=== PATIENT | female | born 1945 | race Caucasian/White ===

== ENCOUNTER 2018-04-19 16:11 | Inpatient (IN) ==
[2018-04-19] MEDS ORDERED: Bisacodyl 10 MG Supp RECTAL PRN (21:49)
[2018-04-19] MEDS ORDERED: Acetaminophen 325 MG Tablet PO PRN (21:49)
[2018-04-19] MEDS ORDERED: Famotidine 20 MG Tablet PO PRN (21:59)
--- NOTE | 2018-04-19 22:03 | P.HPIM ---
History of Present Illness Primary Care Physician: UNKNOWN History of Present Illness: 72 y/o female with a history copd, chronic pain, and anxiety was a transfer from [facility] for evaluation by a cardiothoracic surgeon for evaluation of persistent right-sided hydropneumothorax with large empyema and main need intervention. Patient was admitted on 04/07/18 and found to have pneumonia with a large empyema, thoracentesis was completed on 04/08 and fluid was then sent and cultures grew Streptococcus intermedius, patient was treated with IV antibiotics and is currently on p.o. Levaquin. Patient did have a pigtail catheter in place and continued to drain 100 mL's of fluid every day. Multiple chest x-rays have been completed since thoracentesis and patient continued to have residual right hydropneumothorax despite intervention. Dr. Glaser agreed to take patient on [place] with consult to thoracic surgeons. Upon examination patient denies any chest pain, shortness of breath, fever or chills. Inpatient Certification: I certify that the inpatient services were ordered in accordance with Medicare regulations governing the order. This includes certification that hospital inpatient services are reasonable and necessary and in the case of services not specified as inpatient-only under 42 CFR 419.22(n), that they are appropriately provided as inpatient services in accordance to with the 2-midnight benchmark under 43 CFR 412.3(e) Estimated Total Length of Stay (Days): 2 Plans for Post Hospital Care: Home Review of Systems All other systems reviewed negative except as stated in HPI [facility] - History History Provided By: Patient - Medical History Medical History: Medical History (Last Updated 04/19/18 @ 22:06 by KANCHAN Guardado) Anxiety COPD (chronic obstructive pulmonary disease) Cataract Chronic pain Family history normal GERD (gastroesophageal reflux disease) - Surgical History Surgical History: Surgical History (Last Updated 04/20/18 @ 00:09 by KANCHAN Guardado) History of thoracentesis - Family History Family History: Family History (Last Updated 04/20/18 @ 00:09 by KANCHAN Guardado) Other Family history normal - Tobacco History Second Hand Smoke Exposure: No Tobacco Use In Past 30 Days: No Smoking Status: Current every day smoker Tobacco Type: Cigarettes - Alcohol History How Often Do You Have a Drink Containing Alcohol: Never - Substance Use History Substance History: No History of Abuse Medications and Allergies Active Medications: Active Medications Acetaminophen (Tylenol) 650 mg PO Q4H PRN PRN Reason: Temp > 100.4 Al Hydroxide/Mg Hydroxide (Milk Of Magnesia Liq) 30 ml PO Q12H PRN PRN Reason: Mild Constipation Albuterol (Ventolin Hfa Inh) 2 puff INH Q4-6H PRN PRN Reason: Shortness Of Breath Bisacodyl (Dulcolax Supp) 10 mg RECTAL DAILY PRN PRN Reason: SEVERE CONSITIPATION Clonazepam (Klonopin) 0.5 mg PO BID MARI Diazepam (Valium) 5 mg PO BID MARI Famotidine (Pepcid) 20 mg PO DAILY PRN PRN Reason: Indigestion Lactulose (Lactulose Liq) 30 ml PO DAILY PRN PRN Reason: SEVERE CONSITIPATION Levofloxacin (Levaquin) 750 mg PO DAILY MARI Methocarbamol (Robaxin) 500 mg PO TID [facility] Non-Formulary Medication (Eye Lubricant Combination No.1 [Freshkote]) 1 drp EACH EYE TID [facility] Non-Formulary Medication (Methadone [Methadone]) 5 mg PO Q6H PRN PRN Reason: Acute Pain Non-Formulary Medication (Cholecalciferol (Vitamin D3) [Cholecalciferol ( Vitamin D3)]) 1,000 unit PO DAILY [facility] Ondansetron HCl (Zofran Inj) 4 mg IV.PUSH Q6H PRN PRN Reason: NAUSEA OR VOMITING Oxycodone/Acetaminophen (Percocet 5/325 Mg) 1 tab PO Q4H PRN PRN Reason: Abdominal Pain Pantoprazole Sodium (Protonix) 40 mg PO BID PRN PRN Reason: Indigestion Sennosides (Senokot) 17.2 mg PO Q12H PRN PRN Reason: Moderate Constipation Allergies Allergy/AdvReac Type Severity Reaction Status Date / Time No Known Allergies Allergy Unverified 04/19/18 21:49 Home Medications Medication Instructions Recorded Confirmed Type Senna with Docusate Sodium 2 tab PO AC PRN 04/19/18 04/19/18 History albuterol sulfate [ProAir HFA] 2 puff INHALATION Q4-6H PRN 04/19/18 04/19/18 History cholecalciferol (vitamin D3) 1,000 unit PO DAILY 04/19/18 04/19/18 History clonazepam 0.5 mg PO BID 04/19/18 04/19/18 History diazepam 5 mg PO BID 04/19/18 04/19/18 History estradiol 0.5 mg PO HS 04/19/18 04/19/18 History eye lubricant combination no.1 1 drp OPHTHALMIC (EYE) TID 04/19/18 04/19/18 History [FreshKote] famotidine [Pepcid] 20 mg PO DAILY PRN 04/19/18 04/19/18 History ibuprofen 400 mg PO QID PRN 04/19/18 04/19/18 History levofloxacin [Levaquin] 750 mg PO DAILY 04/19/18 04/19/18 History methadone 5 mg PO Q6H 04/19/18 04/19/18 History methocarbamol [Robaxin] 500 mg PO TID 04/19/18 04/19/18 History norethindrone acetate 2.5 mg PO HS 04/19/18 04/19/18 History oxycodone-acetaminophen 1 - 2 tab PO Q4-6H PRN 04/19/18 04/19/18 History pantoprazole [Protonix] 40 mg PO BID PRN 04/19/18 04/19/18 History Exam Vital signs: Vital Signs 04/19/18 17:33 04/19/18 20:00 Temperature 98.7 F 97.6 F Pulse Rate 81 98 H Respiratory Rate 18 20 Blood Pressure 149/60 H 158/98 H Pulse Oximetry 95 93 L Intake & Output 04/19/18 04/19/18 04/20/18 06:59 18:59 06:59 Weight 38.555 kg Other: Weight On Admission 38.555 kg Narrative: GENERAL: This is a well-nourished, very thin, malnourished looking patient, in no apparent distress. SKIN: Stage 2 coccyx ulcer, blanchable EYES: Pupils equal round and reactive, no scleral edema or drainage CARDIOVASCULAR: Regular rate and rhythm without murmurs, gallops, or rubs. RESPIRATORY: RLL with very little air movement. no wheezes or crackles. GASTROINTESTINAL: Abdomen soft, non-tender, nondistended. Normal active bowel sounds MUSCULOSKELETAL: Extremities without clubbing, cyanosis, or edema. NEURO: Alert & Oriented x4 to person, place, time, situation. Moves all ext x4 Caprini VTE Risk Assessment Caprini VTE Risk Assessment: No/Low Risk (score <= 1) Caprini Risk Assessment Model: Point Value = 1 Point Value = 2 Point Value = 3 Point Value = 5 Age 41-60 Minor surgery BMI > 25 kg/m2 Swollen legs Varicose veins or History of unexplained or recurrent spontaneous Oral contraceptives or hormone replacement Sepsis (< 1 month) Serious lung disease, including pneumonia (< 1 month) Abnormal pulmonary function Acute myocardial infarction Congestive heart failure (< 1 month) History of inflammatory bowel disease Medical patient at bed rest Age 61-74 Arthroscopic surgery Major open surgery (> 45 min) Laparoscopic surgery (> 45 min) Malignancy Confined to bed (> 72 hours) Immobilizing plaster cast Central venous access Age >= 75 History of VTE Family history of VTE Factor V Leiden Prothrombin [id number] Lupus anticoagulant Anticardiolipin antibodies Elevated serum homocysteine Heparin-induced thrombocytopenia Other congenital or acquired thrombophilia Stroke (< 1 month) Elective arthroplasty Hip, pelvis, or leg fracture Acute spinal cord injury (< 1 month) Prophylaxis Regimen: Total Risk Factor Score Risk Level Prophylaxis Regimen 0-1 Low Early ambulation 2 Moderate Order ONE of the following: *Sequential Compression Device (SCD) *Heparin 5000 units SQ BID 3-4 Higher Order ONE of the following medications: *Heparin 5000 units SQ TID *Enoxaparin/Lovenox 40 mg SQ daily (WT < 150 kg, CrCl > 30 mL/min) *Enoxaparin/Lovenox 30 mg SQ daily (WT < 150 kg, CrCl > 10-29 mL/min) *Enoxaparin/Lovenox 30 mg SQ BID (WT < 150 kg, CrCl > 30 mL/min) AND/OR *Sequential Compression Device (SCD) 5 or more Highest Order ONE of the following medications: *Heparin 5000 units SQ TID (Preferred with Epidurals) *Enoxaparin/Lovenox 40 mg SQ daily (WT < 150 kg, CrCl > 30 mL/min) *Enoxaparin/Lovenox 30 mg SQ daily (WT < 150 kg, CrCl > 10-29 mL/min) *Enoxaparin/Lovenox 30 mg SQ BID (WT < 150 kg, CrCl > 30 mL/min) AND *Sequential Compression Device (SCD) Assessment and Plan - Plan 72 y/o female with a history copd, chronic pain, and anxiety was a transfer from [facility] for evaluation by a cardiothoracic surgeon for evaluation of persistent right-sided hydropneumothorax with large empyema and main need intervention. Persistent right-sided hydropneumothorax with large empyema -Consult placed to cardiothoracic surgeon for evaluation -Chest x-ray in a.m. -P.o. after midnight in case surgical intervention is warranted -Continue p.o. Levaquin -Labs in a.m. Coccyx pressure ulcer, stage II -Continue to monitor, apply barrier cream -We will consult wound care if needed -Turn Q2HR Physical deconditioning -PT eval and treat -Add ensure to meals when no longer npo -Consult dietary COPD, chronic, currently not in exacerbation -Resume home inhaler, duo nebs as needed Chronic pain -Resume home medications methadone and Percocet Anxiety, chronic -Resume home medications Valium and Klonopin DVT prophylaxis: SCDs Discussed Condition With: Patient and RN H&P: Quality - VTE Deep Vein Thrombosis/Pulmonary Embolism Present on Admission: Yes
[2018-04-19] MEDS: clonazePAM 0.5 MG Tablet PO SCH (22:26)
[2018-04-19] MEDS: diazePAM 5 MG Tablet PO SCH (22:26)
--- NOTE | 2018-04-20 06:33 | XR ---
EXAM DATE: 04/20/2018 6:14 AM EDT AGE/SEX: 72 years / Female INDICATIONS: Short of breath, evaluate for pneumothorax CLINICAL DATA: This is the patient's initial encounter. Patient reports that signs and symptoms have been present for 2 days and indicates a pain score of 0/10. MEDICAL/SURGICAL HISTORY: Non-responsive. Non-responsive. COMPARISON: No prior exams available for comparison. FINDINGS: A single AP view of the chest demonstrates right basilar density with obscuration of the right hemidi aphragm. There is some volume loss on the right. Left lung clear. Heart normal in size. The cardiome diastinal contours are unremarkable. Questionable right basilar pneumothorax. Osseous structures are intact. CONCLUSION: 1. Right basilar density with some slight volume loss. Contrasted CT chest recommended. 2. Questionable right basilar pneumothorax. Electronically signed by: Omid Smart MD 04/20/2018 6:32 AM EDT
[2018-04-20] MEDS: Methocarbamol 500 MG Tablet PO SCH ×3 (08:18→18:17)
[2018-04-20] MEDS: clonazePAM 0.5 MG Tablet PO SCH ×2 (08:18→20:50)
[2018-04-20] MEDS: diazePAM 5 MG Tablet PO SCH ×2 (08:18→20:50)
[2018-04-20] MEDS: levoFLOXacin 750 MG Tablet PO SCH (08:18)
[2018-04-20] MEDS ORDERED: [UNRECOGNIZED DRUG - OTHER] EACH EYE SCH (09:00)
[2018-04-20] MEDS ORDERED: [UNRECOGNIZED DRUG - OTHER] PO SCH (09:00)
[2018-04-20] MEDS ORDERED: CHOLECALCIFEROL 1000 UNIT PO SCH (09:00)
[2018-04-20] MEDS ORDERED: [UNRECOGNIZED DRUG - OTHER] EACH EYE SCH (09:00)
--- NOTE | 2018-04-20 09:16 | P.PNIM ---
Subjective Interval history: f/u; hydropneumothorax in no acute distress. complaining of some dysuria. no sob or fever. Physical Exam Vital signs: Vital Signs 04/19/18 17:33 04/19/18 20:00 04/20/18 00:00 Temperature 98.7 F 97.6 F 97.6 F Pulse Rate 81 98 H 89 Respiratory Rate 18 20 18 Blood Pressure 149/60 H 158/98 H 146/91 H Pulse Oximetry 95 93 L 91 L 04/20/18 00:28 04/20/18 01:38 04/20/18 03:46 Temperature Pulse Rate 87 110 H 91 H Respiratory Rate 16 Blood Pressure Pulse Oximetry 04/20/18 04:00 04/20/18 08:00 Temperature 97.9 F 98.2 F Pulse Rate 86 83 Respiratory Rate 18 20 Blood Pressure 141/70 H 156/71 H Pulse Oximetry 91 L 93 L Intake & Output 04/19/18 04/20/18 04/20/18 18:59 06:59 18:59 Weight 47.2 kg Other: Weight On Admission 38.555 kg - Constitutional no acute distress - Routine Neck Exam Present: supple - Routine Respiratory Exam Present: diminished air movement (in right lower half.) - Routine Cardiovascular Exam Present: RRR - Routine Abdominal Exam Present: soft - Routine Extremities Exam Comments: no pedal edema. - Routine Neurological Exam Present: oriented X3 Results - Labs CBC & Chem 7: 04/20/18 07:57 04/20/18 07:57 - Imaging Impressions Chest X-Ray 04/20/18 06:00 CONCLUSION: 1. Right basilar density with some slight volume loss. Contrasted CT chest recommended. 2. Questionable right basilar pneumothorax. Assessment and Plan - Plan Persistent right-sided hydropneumothorax with large empyema -Consult placed to cardiothoracic surgeon for evaluation -Continue p.o. Levaquin -Labs today- pending. Coccyx pressure ulcer, stage II -Continue to monitor, apply barrier cream -will consult wound care if needed -Turn Q2HR Physical deconditioning -PT eval and treat -Added ensure to meals when no longer npo -Consulted dietary COPD, chronic, currently not in exacerbation -Resumed home inhaler, duo nebs as needed Chronic pain -Resumed home medications methadone and Percocet Anxiety, chronic -Resume home medications Valium and Klonopin dysuria -check UA and will add Pyridium DVT prophylaxis: SCDs Discharge Planning: awaiting CT surgery evaluation.
[2018-04-20 09:20] LABS: Baso % (Auto) 0.3 % (0.0-2.0); Eos % (Auto) 0.7 % (0.0-4.0); Hematocrit 30.3 % (35.0-46.0); Hemoglobin 9.5 gm/dL (11.6-15.3); Lymph # (Auto) 1.4 th/mm3 (1.0-4.8); Lymph % (Auto) 20.7 % (9.0-44.0); Mean Corpuscular HGB Conc 31.4 % (32.0-36.0); Mean Corpuscular Hemoglobin 27.1 pg (27.0-34.0); Mean Corpuscular Volume 86.5 fL (80.0-100.0); Mono # (Auto) 0.5 th/mm3 (0.0-0.9); Mono % (Auto) 7.3 % (0.0-8.0); Neut # (Auto) 4.8 th/mm3 (1.8-7.7); Platelet Count 574 th/mm3 (150-450); Red Cell Distribution Width 19.8 % (11.6-17.2); White Blood Count 6.8 th/mm3 (4.0-11.0)
[2018-04-20 09:26] LABS: INR 1.1 Ratio; Prothrombin Time 10.7 sec (9.8-11.6)
[2018-04-20 09:51] LABS: Alanine Aminotransferase 13 U/L (10-53); Albumin 2.1 g/dL (3.4-5.0); Alkaline Phosphatase 185 U/L (45-117); Anion Gap 8 meq/L (5-15); Aspartate Aminotransferase 13 U/L (15-37); Blood Urea Nitrogen 7 mg/dL (7-18); Calcium 8.2 mg/dL (8.5-10.1); Carbon Dioxide 33.4 meq/L (21.0-32.0); Chloride 98 meq/L (98-107); Glomerular Filtration Rate Greater Than 89 mL/min (>89); Glucose,Random 82 mg/dL (74-106); Sodium 139 meq/L (136-145); Total Protein 6.1 g/dL (6.4-8.2)
[2018-04-20 10:00] LABS: Potassium 2.9 meq/L (3.5-5.1)
--- NOTE | 2018-04-20 16:44 | P.DIET ---
Nutritional Evaluation Type of nutrition evaluation: initial Nutrition consult regarding: Diet Evaluation (MDC for Malnutrition) Subjective Subjective Comments: Pt visibly cachectic w/ muscle wasting noticed in the temporal region, legs, arms, and clavicle region. She says she lost wt while in the hospital x3 weeks at [place], but now feels hungry and is ready to focus on gaining wt back. Agreeable to Ensure TID. Denied N/V/D/C. Denied trouble chewing/swallowing. Review of pts baseline nutrition at home, it does seem like she eats less than she should. Objective - Diagnosis Medical - Objective % IBW: 83 (CKJ=735#) Body Weight Used for Calculations: IBW (56.8kg) Energy Needs - Lower Range (kCal/kg): 25 Energy Needs - Upper Range (kCal/kg): 30 Lower Limit kCal/kg (kCals): 1,420 Upper Limit kCal/kg (kCals): 1,704 Lower Limit Protein Factor (Grams per Kg): 1.0 Upper Limit Protein Factor (Grams per Kg): 1.2 Lower Protein Needs (Protein): 57 Upper Protein Needs (Protein): 68 Dietitian Reviewed in Medical Record: Current diet, Curent medications, Intake & Output, Labs, Medical history Diet Order: Regular Objective Comments: Meds: Vitamin D3 Labs: K 2.9 (-) BM Feeding - Current PO Supplement Current Supplement: Ensure Enlive Current Frequency of Supplement: Three times a day Current kCals Provided by Supplement: 350 Current Protein Provided by Supplement: 20 Assessment Assessment: Pt admitted from [facility]. She states she lost all of her wt while inpatient at [place]. She states she has no issues now w/ her appetite and desire to eat. Denied N/V/D/C. Denied trouble chewing/swallowing. It seems that she may not have been eating enough when she was home. She is at high nutritional risk 2/2 her recent wt loss and her underweight status and this was discussed w/ pt. Agreeable to Enlive TID. Will continue to monitor PO intake. Dietitian following. Recommendations: 1. Continue current POC. 2. Enlive TID. Dietitian to Monitor: Lab values, Supplement acceptance, Intake & Output, Diet tolerance, Weight change, PO Intake, Medical course
--- NOTE | 2018-04-20 17:14 | CT ---
EXAM DATE: 04/20/2018 5:04 PM EDT AGE/SEX: 72 years / Female INDICATIONS: Chest discomfort. CLINICAL DATA: This is the patient's initial encounter. Patient reports that signs and symptoms have been present for 1 day and indicates a pain score of 4/10. MEDICAL/SURGICAL HISTORY: Chronic obstructive pulmonary disease. . Thoracentesis. RADIATION DOSE: 5.1 CTDI (mGy) COMPARISON: C, CHEST 1V SINGLE AP, 04/20/2018. . TECHNIQUE: Multiple contiguous axial images were obtained through the chest without contrast. Image s were obtained in suspended respiration using multiple row detector helical technique. Using automa vanita exposure control and adjustment of the mA and/or kV according to patient size, radiation dose was kept as low as reasonably achievable to obtain optimal diagnostic quality images. DICOM format imag e data is available electronically for review and comparison. FINDINGS: Lung/pleura: There is a large loculated right-sided hydropneumothorax with indeterminate fluid densi ty. Associated airspace consolidation at the right lung base. Mild to moderate upper lobe predominant centrilobular emphysema. There is occlusion of the right mainstem bronchus with debris and fluid not ed in the bronchus. Mediastinum: Moderate coronary artery calcifications. Heart is otherwise unremarkable. No gross medi astinal adenopathy. Osseous Structures: No abnormal focal lytic or blastic bony lesions. Soft Tissues: Soft tissues are unremarkable. No significant axillary adenopathy. Other: Visulaized upper abdomen demonstrates a 2.6 cm cyst in the superior pole of left kidney.. CONCLUSION: 1. Occlusion of the right mainstem bronchus with debris and fluid noted in the bronchus. Associated large loculated right-sided hydropneumothorax with indeterminate fluid density. Relatively small amou nt of associated airspace consolidation at the right lung base, in the expected range for compressive atelectasis. Suspect findings reflect aspiration with right-sided empyema. Differential consideratio ns include endobronchial mass. 2. Additional ancillary findings, as above. Electronically signed by: Kolton Escoto MD 04/20/2018 5:13 PM EDT
--- NOTE | 2018-04-20 17:15 | MB ---
cc: Dyana Monson MD DATE: 04/20/2018 HISTORY OF PRESENT ILLNESS: A 72-year-old female with significant history of COPD, fibromyalgia, malnutrition transferred from [facility] for cardiothoracic evaluation for persistent right-sided hydropneumothorax with empyema and evaluation for possible right video-assisted thoracoscopy, possible thoracotomy decortication. The patient has had pulmonary issues since January of this year where she fell at home, had some bruising to her right ribs. She had a thoracentesis at [facility] in February and then she was home for about 24 hours, developed fever. She went to [facility] for about 3 weeks. She was home for 2 weeks developed a fever again, went into [facility] again and this time was found to have a right effusion again, pleural fluid collection. The thoracentesis drained 800 mL of milky purulent fluid. On 04/17/2018, the pleural fluid grew Strep intermedius. They were treated her with IV Levaquin. PAST MEDICAL HISTORY: Recurrent pneumonia, recurrent pleural effusion, empyema with Strep intermedius, fibromyalgia, scoliosis, chronic low back pain, right and left rotator cuff tear, spinal stenosis, anxiety. She has lost about 20 pounds in the past 6 months. No ill contacts. No recent travel. PAST SURGICAL HISTORY: Include thoracentesis per the patient x2. ALLERGIES: NO KNOWN ALLERGIES. MEDICATIONS FROM [facility]: Ibuprofen, Levaquin, nebulizers, vitamin D3, clonazepam, estradiol, Pepcid, methadone, Robaxin, norethindrone acetate, Percocet, Protonix. FAMILY HISTORY: Noncontributory. SOCIAL HISTORY: Remote history of tobacco abuse. No alcohol. , lives with her . REVIEW OF SYSTEMS: As above in HPI, other 12 systems unremarkable. PHYSICAL EXAMINATION: VITAL SIGNS: Blood pressure 140/60, heart rate 80-90, afebrile, O2 saturation 91 on room air. The patient is very thin, cachectic. HEENT: Normocephalic, atraumatic. Pupils equal and reactive. Oral mucosa pink, moist. NECK: Supple. No JVD. HEART: Sounds S1, S2. Regular rate and rhythm. No audible rubs or gallops. LUNGS: Very diminished in the bases, right greater than the left. ABDOMEN: Flat, concave. No masses or organomegaly. EXTREMITIES: No cyanosis, clubbing or edema. She does have some mild incontinence to urine. LABORATORY DATA: Shows hemoglobin 9.5, hematocrit of 30, white cell count of 6.8, platelet count of 574. Sodium 139, potassium 2.9, BUN of 7, creatinine 0.23, glucose 82. INR 1.1. RADIOLOGIC DATA: Exams pending. Her recent chest x-ray shows again a moderate to large right pleural effusion with some volume loss. IMPRESSION: This is a patient who has had a thoracentesis x2 for right pleural effusion. Her pleural fluid did grow Streptococcus intermedius. They have been treating her with Levaquin. She was transferred to our facility for persistent effusion and volume loss. PLAN: At this time, the patient will undergo CT chest, pulmonary function testing. She has severe malnutrition with a BMI of 17. Recommend protein supplements. The films will then be evaluated by Dr. Dyana Monson and further plan pending at that time. Dictated by KANCHAN Ramirez MD KELLIE Kumar/alfred , 04:31 PM , 04:40 PM
[2018-04-20] MEDS: Methadone 10 MG Tablet PO PRN (19:53)
[2018-04-20 20:35] LABS: Bacteria,Urine Rare /hpf; Bilirubin,Urine Negative (Negative); Calcium Oxalate Crystals,Urine Moderate /hpf; Clarity,Urine Hazy (Clear); Color,Urine Amber (Yellw/Straw); Glucose,Urine (UA) Negative (Negative); Leukocyte Esterase,Urine Negative (Negative); Mucus,Urine Many /lpf (Occasional); Nitrite,Urine Positive (Negative); Specific Gravity,Urine 1.021 (1.002-1.035); Squamous Epithelial Cell,Urine 7 /hpf (0-5); Urobilinogen,Urine 4 or Greater mg/dL (Less than 2)
[2018-04-20] MEDS: Estradiol 1 MG Tablet PO SCH (20:49)
[2018-04-20] MEDS ORDERED: NORETHINDRONE PO SCH (21:00)
[2018-04-20] MEDS: Nystatin 100,000 UNITS/GM Powder 15 GM Bottle TOPICAL SCH (23:56)
[2018-04-21] MEDS: Methadone 10 MG Tablet PO PRN ×4 (02:23→22:40)
[2018-04-21] MEDS: clonazePAM 0.5 MG Tablet PO SCH ×2 (07:58→20:54)
[2018-04-21] MEDS: Methocarbamol 500 MG Tablet PO SCH ×3 (07:59→18:27)
[2018-04-21] MEDS: Nystatin 100,000 UNITS/GM Powder 15 GM Bottle TOPICAL SCH ×2 (08:02→20:55)
[2018-04-21] MEDS: levoFLOXacin 750 MG Tablet PO SCH (08:02)
[2018-04-21] MEDS: diazePAM 5 MG Tablet PO SCH ×2 (08:02→20:53)
--- NOTE | 2018-04-21 09:18 | P.PNIM ---
Subjective Interval history: f/u; empyema in no acute distress. although complaining of generalized pain and back pain, she looks fairly comfortable. no sob or fever. Physical Exam Vital signs: Vital Signs 04/20/18 12:00 04/20/18 16:00 04/20/18 16:20 Temperature 98.1 F 97.6 F Pulse Rate 112 H 97 H 103 H Respiratory Rate 20 20 20 Blood Pressure 142/67 H 132/63 Pulse Oximetry 91 L 91 L 04/20/18 16:21 04/20/18 20:00 04/21/18 00:00 Temperature 98.3 F 97.7 F Pulse Rate 103 H 83 Respiratory Rate 18 16 Blood Pressure 151/65 H 136/64 Pulse Oximetry 91 L 95 94 L 04/21/18 03:52 04/21/18 04:00 Temperature 97.4 F L Pulse Rate 82 84 Respiratory Rate 18 Blood Pressure 128/68 Pulse Oximetry 97 Intake & Output 04/20/18 04/21/18 04/21/18 18:59 06:59 18:59 Intake Total 240 / 240 Balance 240 / 240 Weight 47.2 kg Intake: Oral 240 / 240 Other: # Voids 2 # Incontinent Bowel Movements 0 - Constitutional no acute distress - Routine Respiratory Exam Present: diminished air movement (right base.) - Routine Cardiovascular Exam Present: RRR - Routine Abdominal Exam Present: soft - Routine Extremities Exam Comments: no pedal edema. - Routine Neurological Exam Present: alert, oriented X3 Results - Labs CBC & Chem 7: 04/20/18 07:57 04/20/18 07:57 Laboratory Results - last 24 hr 04/20/18 04/20/18 04/20/18 07:57 07:57 07:57 WBC 6.8 RBC 3.50 L Hgb 9.5 L Hct 30.3 L MCV 86.5 MCH 27.1 MCHC 31.4 L RDW 19.8 H Plt Count 574 H MPV 7.0 Neut % (Auto) 71.0 H Lymph % (Auto) 20.7 Whitfield % (Auto) 7.3 Eos % (Auto) 0.7 Baso % (Auto) 0.3 Neut # (Auto) 4.8 Lymph # (Auto) 1.4 Whitfield # (Auto) 0.5 Eos # (Auto) 0.0 Baso # (Auto) 0.0 WBC Differential . Differential Comment Auto diff final PT 10.7 INR 1.1 Sodium 139 Potassium 2.9 L* Chloride 98 Carbon Dioxide 33.4 H Anion Gap 8 BUN 7 Creatinine 0.23 L Estimated GFR Greater than 89 Random Glucose 82 Calcium 8.2 L Total Bilirubin 0.3 AST 13 L ALT 13 Alkaline Phosphatase 185 H Total Protein 6.1 L Albumin 2.1 L Urine Color Urine Clarity Urine pH Ur Specific Mcmechen Urine Protein Urine Glucose (UA) Urine Ketones Urine Occult Blood Urine Nitrate Urine Bilirubin Urine Urobilinogen Ur Leukocyte Esterase Urine WBC Ur Squamous Epith Cells Calcium Oxalate Crystal Urine Bacteria Urine Mucus Micro UA Comment Urine Culture Comments 04/20/18 16:00 WBC RBC Hgb Hct MCV MCH MCHC RDW Plt Count MPV Neut % (Auto) Lymph % (Auto) Whitfield % (Auto) Eos % (Auto) Baso % (Auto) Neut # (Auto) Lymph # (Auto) Whitfield # (Auto) Eos # (Auto) Baso # (Auto) WBC Differential Differential Comment PT INR Sodium Potassium Chloride Carbon Dioxide Anion Gap BUN Creatinine Estimated GFR Random Glucose Calcium Total Bilirubin AST ALT Alkaline Phosphatase Total Protein Albumin Urine Color Lydia Urine Clarity Hazy H Urine pH 7.0 Ur Specific Mcm[place]hen 1.021 Urine Protein Negative Urine Glucose (UA) Negative Urine Ketones Negative Urine Occult Blood Negative Urine Nitrate Positive H Urine Bilirubin Negative Urine Urobilinogen 4 or greater Ur Leukocyte Esterase Negative Urine WBC 2 Ur Squamous Epith Cells 7 Calcium Oxalate Crystal Moderate H Urine Bacteria Rare H Urine Mucus Many H Micro UA Comment Culture indicated Urine Culture Comments Culture indicated - Imaging Impressions Chest CT 04/20/18 14:16 CONCLUSION: 1. Occlusion of the right mainstem bronchus with debris and fluid noted in the bronchus. Associated large loculated right-sided hydropneumothorax with indeterminate fluid density. Relatively small amount of associated airspace consolidation at the right lung base, in the expected range for compressive atelectasis. Suspect findings reflect aspiration with right-sided empyema. Differential considerations include endobronchial mass. 2. Additional ancillary findings, as above. Assessment and Plan - Plan Persistent right-sided hydropneumothorax with large empyema -Consult placed to cardiothoracic surgeon for evaluation -pulmonary consulted. -Continue p.o. Levaquin Coccyx pressure ulcer, stage II -consulted wound care. Physical deconditioning -PT eval and treat -Added ensure to meals when no longer npo -Consulted dietary COPD, chronic, currently not in exacerbation -Resumed home inhaler, duo nebs as needed Chronic pain -Resumed home medications methadone and Percocet Anxiety, chronic -Resumed home medications Valium and Klonopin dysuria/ UTI -continue Levaquin- follow the cultures- added Pyridium Hypokalemia- replaced; potassium level today pending. DVT prophylaxis: SCDs Discharge Planning: awaiting CT surgery/pulmonary evaluation.
--- NOTE | 2018-04-21 10:16 | P.PNWCN ---
Wound Care Nurse Consult Description: Wound consult ordered by for wound management Communicated with: Chantale HOLLAND, Recommendation: 1.Reposition patient to left and right every 2 hours for comfort and off loading. 2. Cleanse sacral/Coccyx region with remedy soft cloth barrier wipes 3. Skin prep periwound let dry, Apply Exuderm hydrocolloid to open area/sacrum. 4. Change dressing every 3-5 days or as needed for soiled/dislodgement. 5. Sign and date all dressings. Additional information: Patient was seen today by securities underwriter for wound management .Patient alert and oriented x4 resting in bed in no acute distress.Patient was able to reposition self to left side with no assistance.Patient noted to be very cachectic with high risk ulises prominences.Hydrocolloid dressing removed with out difficulty sacral/coccyx region cleansed with remedy soft cloth barrier wipes.patient noted to have a stage 2 pressure injury located on left side of sacral bone.Wound measures 1.0cm x1.5cm x<0.1cm wound base is 100% moist pink tissue wound edges are well defined with periwound being blanchable to touch.Scant serous exudate noted with out odor.Patient states Calazime cream burned.Exuderm hydrocolloid applied after skin prep to periwound.Dressing signed and dated.Patient education performed on offloading avoiding direct pressure to tail bone.importance of nutrition to promote wound healing.Patient verbalized understanding. Wound/Pressure Injury - Wound left sacral region Wound Staging: Stage II Wound Assessment: Admission Wound Type: Pressure Injury Is This a Chronic Wound: Yes Requested from Provider a Wound Care Consult: No Length: 1.0 Width: 1.5 Depth: 0.1 Wound Bed Appearance: [place] Surrounding Tissue Appearance: Blanched/Dull Surrounding Tissue Temperature: Cool Drainage Description: Serous Drainage Amount: Scant Drainage Odor: No Odor Dressing Status: Changed Cleansing Solution: Saline Primary Dressing: Hydrocolloid Wound Dressing Change Date: 04/21/18
--- NOTE | 2018-04-21 12:40 | P.PNCV ---
- Note Subjective/Hospital Course: 72y/o cachectic female presents with large loculated right pleural effusion. She had a pleural fluid culture at [place] [facility] and was ultimately transferred here for further management. Chest CT was performed on admission here and shows right lower lobe atelectasis with and what appears to be obstruction of the RLL bronchus or bronchus intermedius. Pleural effusion cytology from [place] was reportedly negative for malignancy. Objective: Vital Signs - 24 hr 04/20/18 16:00 04/20/18 16:20 04/20/18 16:21 Temperature 97.6 F Pulse Rate 97 H 103 H Respiratory Rate 20 20 Blood Pressure 132/63 Pulse Oximetry 91 L 91 L 04/20/18 20:00 04/21/18 00:00 04/21/18 03:52 Temperature 98.3 F 97.7 F 97.4 F L Pulse Rate 103 H 83 82 Respiratory Rate 18 16 18 Blood Pressure 151/65 H 136/64 128/68 Pulse Oximetry 95 94 L 97 04/21/18 04:00 04/21/18 08:00 Temperature 98.1 F Pulse Rate 84 107 H Respiratory Rate 18 Blood Pressure 160/82 H Pulse Oximetry 89 L Labs: Laboratory Results - last 12 hr 04/21/18 11:16 Potassium 3.5 Result Diagrams: 04/20/18 07:57 04/21/18 11:16 Imaging: Chest X-Ray 04/20/18 06:00 CONCLUSION: 1. Right basilar density with some slight volume loss. Contrasted CT chest recommended. 2. Questionable right basilar pneumothorax. Chest CT 04/20/18 14:16 CONCLUSION: 1. Occlusion of the right mainstem bronchus with debris and fluid noted in the bronchus. Associated large loculated right-sided hydropneumothorax with indeterminate fluid density. Relatively small amount of associated airspace consolidation at the right lung base, in the expected range for compressive atelectasis. Suspect findings reflect aspiration with right-sided empyema. Differential considerations include endobronchial mass. 2. Additional ancillary findings, as above. Pulmonary: decreased BS on right GI/: NABS, NT This patient is very high-risk for surgical intervention due to her being cachectic and deconditioned. Recommend pulmonary consultation for bronchoscopy to evaluate for malignancy. She would likely require a formal decortication but I do not believe she would tolerate this procedure currently.
[2018-04-21] MEDS ORDERED: RESP: Albuterol Concentrated 2.5 MG/0.5 ML Neb NEB SCH (13:15)
[2018-04-21] MEDS ORDERED: RESP: Lidocaine PF 4% 5 ML Neb NEB SCH (13:15)
--- NOTE | 2018-04-21 13:37 | MB ---
cc: Jairo Miranda MD DATE: 04/21/2018 HISTORY OF PRESENT ILLNESS: Ms. Desai is a 72-year-old white female, who was transferred here from [facility] for consideration of VATS evaluation of a persistent right hydropneumothorax/empyema. I am asked to see her because on her initial CT scan, she appears to have an obstructed distal right mainstem bronchus. The patient's illness began about 6 or 8 weeks ago, when she collapsed in her bathroom, was admitted to [facility], apparently treated for pneumonia, although I do not have all of those records. Was quite ill and debilitated, went to a nursing facility for about 3 weeks, and then home. However, only within days of going home, she was back in the hospital. A large pleural effusion was again identified. It was drained and found to be infected with streptococcus. A chest tube was placed, and the patient was transferred here for cardiothoracic surgical evaluation. Over the course of the last 2 months, the patient has probably lost 20-25 pounds. Her appetite is poor. She has been coughing, but no hemoptysis, and really had no preceding symptoms to suggest pneumonia at the time of her original presentation. She denies a prior smoking history, although she is listed as having COPD. ADDITIONAL PAST MEDICAL HISTORY: Chronic pain, gastroesophageal reflux disease, anxiety, cataract surgery and previous TIAs. PAST SURGICAL HISTORY: Other than the recent thoracentesis, no significant prior surgical history. SOCIAL HISTORY: , living with her , who is a retired Ph.D. anatomist. Denies alcohol use or tobacco. No illicit drug use. She is seen by a pain specialist for chronic pain, for which she has been on oxycodone and methadone at home. CURRENT MEDICATIONS: Reviewed in the EMR. She is currently on no anticoagulants. She was taking an 81 mg aspirin at home. REVIEW OF SYSTEMS: Weight loss, loss of appetite, chronic pain, unclear etiology, possible fibromyalgia. No chronic edema. Generalized weakness, but no specific shortness of breath. PHYSICAL EXAMINATION: GENERAL: Thin, white female, in no distress at rest. VITAL SIGNS: Patient is afebrile, pulse is 90, respirations are 18-22, room air saturation is varying, somewhat as high as 97, and as low as 89. HEENT: Sclerae are anicteric. Mucous membranes are a little dry. NECK: Veins are flat. No palpable adenopathy in the neck or supraclavicular region. LUNGS: Diminished on the right. Clear on the left. Dullness to percussion on the right. HEART: No harsh murmur. No audible S3. ABDOMEN: Soft. EXTREMITIES: No peripheral edema or cyanosis. IMAGING: CT scan of her chest on 04/20/2018: Occlusion of the right mainstem bronchus distally. Large loculated right-sided hydropneumothorax. No obvious adenopathy. DISCUSSION: Ms. Desai presents with probably a 6-8 week chronic illness, possibly related to this infection/empyema. Cardiothoracic surgery has seen her, is considering drainage and/or VATS as a possible option here, but the right distal mainstem bronchus appears to be occluded. Whether or not this represents a tumor is unclear, but as I have explained to her and her today, we need to proceed with a diagnostic bronchoscopy. I have explained the procedure to her in simple terms so that she understands what it involves. We discussed potential complications including anesthetic risk, respiratory failure, bleeding or pneumothorax. She is agreeable to proceed. At this point, I will defer further drainage decisions with regard to the hydropneumothorax to cardiothoracic surgery. It appears stable at the moment. She is not overtly septic from this. I will also see if we have any records documenting those cultures that were taken from the fluid previously. She is on Levaquin, which we will continue presently until we have additional culture material. Further diagnostic and/or therapeutic intervention will depend on her ongoing clinical course and response to therapy. R. MD RUTH ANN Avalos/jose g , 01:04 PM , 01:15 PM
[2018-04-21] MEDS: Sodium Chloride 0.45 % Inj 1,000 ML IV.CONT SCH (15:28)
[2018-04-21] MEDS: Estradiol 1 MG Tablet PO SCH (20:53)
[2018-04-22] MEDS: Methadone 10 MG Tablet PO PRN ×3 (04:45→22:20)
[2018-04-22] MEDS: Methocarbamol 500 MG Tablet PO SCH ×3 (08:30→18:24)
[2018-04-22] MEDS: diazePAM 5 MG Tablet PO SCH ×2 (08:30→20:34)
[2018-04-22] MEDS: levoFLOXacin 750 MG Tablet PO SCH (08:31)
[2018-04-22] MEDS: clonazePAM 0.5 MG Tablet PO SCH ×2 (08:31→20:34)
[2018-04-22] MEDS: Nystatin 100,000 UNITS/GM Powder 15 GM Bottle TOPICAL SCH ×2 (10:13→20:35)
--- NOTE | 2018-04-22 10:58 | P.PNIM ---
Subjective Interval history: f/u; empyema in no acute distress. looks comfortable with no sob or chest pain. no fever. awaiting bronchoscopy. d/w the RN at the bedside. Physical Exam Vital signs: Vital Signs 04/21/18 12:00 04/21/18 16:00 04/21/18 16:11 Temperature 98.3 F 97.9 F Pulse Rate 92 H 100 H 77 Respiratory Rate 18 18 16 Blood Pressure 127/60 129/82 Pulse Oximetry 90 L 89 L 04/21/18 20:00 04/22/18 00:00 04/22/18 04:00 Temperature 98.9 F 98.2 F 98.2 F Pulse Rate 95 H 91 H 82 Respiratory Rate 20 18 18 Blood Pressure 127/69 165/80 H 171/83 H Pulse Oximetry 95 91 L 92 L 04/22/18 08:00 Temperature 97.8 F Pulse Rate 103 H Respiratory Rate 18 Blood Pressure 150/72 H Pulse Oximetry 92 L Intake & Output 04/21/18 04/22/18 04/22/18 18:59 06:59 18:59 Weight 47.9 kg - Constitutional no acute distress - Routine Respiratory Exam Present: CTA bilaterally - Routine Cardiovascular Exam Present: RRR - Routine Abdominal Exam Present: soft - Routine Extremities Exam Comments: no pedal edema. - Routine Neurological Exam Present: alert, oriented X3 Results - Labs CBC & Chem 7: 04/20/18 07:57 04/21/18 15:25 Laboratory Results - last 24 hr 04/21/18 04/21/18 04/21/18 11:16 15:25 15:25 APTT 29.2 Potassium 3.5 4.4 D Microbiology 04/20/18 16:00 Clean Catch Urine Urine Culture - Final No growth in 48 hours Assessment and Plan - Plan Persistent right-sided hydropneumothorax with large empyema -Consult placed to cardiothoracic surgeon for evaluation; recommended bronchoscopy. -pulmonary consult appreciated; for bronchoscopy today. -Continue p.o. Levaquin Coccyx pressure ulcer, stage II -consulted wound care. Physical deconditioning -PT eval and treat -Added ensure to meals when no longer npo -Consulted dietary COPD, chronic, currently not in exacerbation -Resumed home inhaler, duo nebs as needed Chronic pain -Resumed home medications methadone and Percocet Anxiety, chronic -Resumed home medications Valium and Klonopin dysuria/ UTI -continue Levaquin- follow the cultures- added Pyridium Hypokalemia- replaced. DVT prophylaxis: SCDs Discharge Planning: for bronchoscopy today; not ready for discharge.
[2018-04-22] MEDS ORDERED: Lidocaine PF 1% Inj 5 ML Syringe INFILTRATN ONE (12:00)
[2018-04-22] MEDS ORDERED: Phenylephrine/NS 1000 MCG/10ML Syringe IV.PUSH ONE (12:00)
[2018-04-22] MEDS ORDERED: Morphine Inj 4 MG/ML Vial ONE (12:01)
--- NOTE | 2018-04-22 12:15 | ECG ---
Date Performed: 04/21/2018 Time Performed: 16:46:08 PTAGE: 72 years EKG: Sinus rhythm . Short AL interval Inferior/lateral ST-T changes are nonspecific Borderline ECG NO PREVIOUS TRACING DOCTOR: Carlo Shah Interpretating Date/Time 04/22/2018 12:12:21
--- NOTE | 2018-04-22 12:49 | MP ---
cc: Jairo Miranda MD DATE OF OPERATION: 04/22/2018 PROCEDURE: Bronchoscopy. INDICATIONS FOR PROCEDURE: Suspicious right hilar mass. PROCEDURE IN DETAIL: After informed consent was obtained, the patient underwent diagnostic bronchoscopy with LMA anesthesia. Examination of the larynx was unremarkable. Examination of the right trachea was normal down to the takeoff of the right and left mainstem bronchus. Left mainstem bronchus was normal. Left upper and lower lobes were examined. There was no endobronchial pathology. Examination of the right mainstem bronchus initially revealed rather extensive secretions. These were aspirated until clear. Examination of the right middle and lower lobe orifices was unremarkable for any type of endobronchial mass, although there was some extrinsic compression on the lateral side of the bronchus intermedius. All airways were patent, though there was no obstruction. She tolerated the procedure well, without apparent complication. Bronchoalveolar lavage is submitted for cultures and cytology. MD RUTH ANN Zavaleta/jose g , 12:26 PM , 12:35 PM
[2018-04-22] MEDS: Sodium Chloride 0.45 % Inj 1,000 ML IV.CONT SCH (16:37)
[2018-04-22] MEDS: Estradiol 1 MG Tablet PO SCH (20:33)
[2018-04-23] MEDS: Methadone 10 MG Tablet PO PRN ×2 (04:18→22:30)
[2018-04-23] MEDS: Nystatin 100,000 UNITS/GM Powder 15 GM Bottle TOPICAL SCH ×2 (08:31→20:47)
[2018-04-23] MEDS: levoFLOXacin 750 MG Tablet PO SCH (08:31)
[2018-04-23] MEDS: diazePAM 5 MG Tablet PO SCH ×2 (08:31→20:42)
[2018-04-23] MEDS: clonazePAM 0.5 MG Tablet PO SCH ×2 (08:31→20:43)
[2018-04-23] MEDS: Methocarbamol 500 MG Tablet PO SCH ×3 (08:31→17:28)
--- NOTE | 2018-04-23 11:30 | P.PNIM ---
Subjective Interval history: f/u; empyema in no acute distress. no fever. looks more comfortable today. Physical Exam Vital signs: Vital Signs 04/22/18 11:55 04/22/18 12:46 04/22/18 13:00 Temperature 98 F 98 F Pulse Rate 82 98 H 97 H Respiratory Rate 16 16 Blood Pressure 126/66 140/69 Pulse Oximetry 93 L 93 L 04/22/18 16:00 04/22/18 19:15 04/22/18 19:49 Temperature 98.5 F 97.5 F L Pulse Rate 104 H 124 H Respiratory Rate 18 18 Blood Pressure 115/54 L 132/89 Pulse Oximetry 93 L 88 L 92 L 04/22/18 20:00 04/23/18 00:00 04/23/18 04:00 Temperature 98.1 F 98.4 F Pulse Rate 95 H 85 74 Respiratory Rate 18 18 Blood Pressure 113/58 L 140/68 Pulse Oximetry 95 91 L 04/23/18 06:11 04/23/18 08:00 04/23/18 08:36 Temperature 97.9 F Pulse Rate 79 78 Respiratory Rate 18 15 Blood Pressure 141/72 H Pulse Oximetry 95 93 L Intake & Output 04/22/18 04/23/18 04/23/18 18:59 06:59 18:59 Intake Total 240 / 240 360 / 360 Output Total 600 / 600 Balance -360 / -360 360 / 360 Weight 47.2 kg Intake: Oral 240 / 240 360 / 360 Output: Urine 600 / 600 Other: # Voids 5 Date of Last Bowel Movement 04/22/18 # Bowel Movements 0 1 - Constitutional no acute distress - Routine Respiratory Exam Present: CTA bilaterally - Routine Cardiovascular Exam Present: RRR - Routine Abdominal Exam Present: soft - Routine Extremities Exam Comments: no pedal edema. - Routine Neurological Exam Present: alert, oriented X3 Results - Labs CBC & Chem 7: 04/20/18 07:57 04/21/18 15:25 Microbiology 04/21/18 15:17 Blood - Peripheral Aerobic Blood Culture - Preliminary No growth in 2 days 04/21/18 15:17 Blood - Peripheral Anaerobic Blood Culture - Preliminary No growth in 2 days 04/21/18 15:25 Blood - Peripheral Aerobic Blood Culture - Preliminary No growth in 2 days 04/21/18 15:25 Blood - Peripheral Anaerobic Blood Culture - Preliminary No growth in 2 days 04/22/18 12:17 Bronchial Washings - Right Lower Lobe Fungal Smear - Final Rare budding yeast 04/22/18 12:17 Bronchial - Right Lower Lobe Gram Stain - Final 04/20/18 16:00 Clean Catch Urine Urine Culture - Final No growth in 48 hours Assessment and Plan - Plan Persistent right-sided hydropneumothorax with large empyema -Consult placed to cardiothoracic surgeon for evaluation; recommended bronchoscopy. -s/p bronchoscopy 04/22- will follow the culture/biopsy. -consult IR for right thoracentesis -Continue p.o. Levaquin -pulmonary following. Coccyx pressure ulcer, stage II -consulted wound care. Physical deconditioning -PT eval and treat -Added ensure to meals when no longer npo -Consulted dietary COPD, chronic, currently not in exacerbation -Resumed home inhaler, duo nebs as needed Chronic pain -Resumed home medications methadone and Percocet Anxiety, chronic -Resumed home medications Valium and Klonopin dysuria/ UTI -continue Levaquin- follow the cultures- added Pyridium Hypokalemia- replaced. DVT prophylaxis: SCDs Discharge Planning: for right-sided thoracentesis- d/w and CT surgery.
[2018-04-23] MEDS ORDERED: fentaNYL Citrate Inj 250 MCG/5 ML Ampul ONE (15:38)
--- NOTE | 2018-04-23 15:50 | P.PNCV ---
- Note Subjective/Hospital Course: 72y/o cachectic female presents with large loculated right pleural effusion. She had a pleural fluid culture at [place] [facility] and was ultimately transferred here for further management. Chest CT was performed on admission here and shows right lower lobe atelectasis with and what appears to be obstruction of the RLL bronchus or bronchus intermedius. Pleural effusion cytology from [place] was reportedly negative for malignancy. 04/23 s/p Bronch . All airways were patent, though there was no obstruction./ cultures pending IR eval for right thoracentesis / send fluid for studies Objective: Vital Signs - 24 hr 04/22/18 16:00 04/22/18 19:15 04/22/18 19:49 Temperature 98.5 F 97.5 F L Pulse Rate 104 H 124 H Respiratory Rate 18 18 Blood Pressure 115/54 L 132/89 Pulse Oximetry 93 L 88 L 92 L 04/22/18 20:00 04/23/18 00:00 04/23/18 04:00 Temperature 98.1 F 98.4 F Pulse Rate 95 H 85 74 Respiratory Rate 18 18 Blood Pressure 113/58 L 140/68 Pulse Oximetry 95 91 L 04/23/18 06:11 04/23/18 08:00 04/23/18 08:36 Temperature 97.9 F Pulse Rate 79 78 Respiratory Rate 18 15 Blood Pressure 141/72 H Pulse Oximetry 95 93 L GENERAL: SKIN: Warm and dry. HEAD: Normocephalic. EYES: No scleral icterus. No injection or drainage. NECK: Supple, trachea midline. No JVD or lymphadenopathy. CARDIOVASCULAR: Regular rate and rhythm without murmurs, gallops, or rubs. RESPIRATORY: diminsihed right vs left, No accessory muscle use. GASTROINTESTINAL: Abdomen soft, non-tender, nondistended. MUSCULOSKELETAL: No cyanosis, or edema. BACK: Nontender without obvious deformity. No CVA tenderness. Result Diagrams: 04/20/18 07:57 04/21/18 15:25 - Plan (1) Loculated pleural effusion Plan: for thoracentesis today
--- NOTE | 2018-04-23 17:12 | CT ---
EXAM DATE: 04/23/2018 4:53 PM EDT AGE/SEX: 72 years / Female INDICATIONS: Right chest pyopneumothorax. CLINICAL DATA: This is the patient's initial encounter. Patient reports that signs and symptoms have been present for 1 day and indicates a pain score of 0/10. MEDICAL/SURGICAL HISTORY: Chronic obstructive pulmonary disease. None. MEDICATION(S): 100mcg fentanyl (Sublimaze) IV DEVICE(S): 10 Fr Skater . . COMPARISON: [facility] [place], CT CHEST W/O CONTRAST, 04/20/2018. . PROCEDURE : CT guided right chest tube placement. The risks, benefits and alternatives to the procedure were explained and verbal and written consent w as obtained. The site was prepped in sterile fashion. Full sterile technique was used, including ca p, mask, sterile gloves and gown and a large sterile sheet. Hand hygiene and 2% chlorhexidine and/or betadine/alcohol prep was utilized per protocol for cutaneous antisepsis. The skin and subcutaneous tissues were infiltrated with local anesthetic solution. Using automated exposure control and adjus tment of the mA and/or kV according to patient size, radiation dose was kept as low as reasonably ach ievable to obtain optimal diagnostic quality images. DICOM format image data is available electronic ally for review and comparison. With CT guidance the chest was punctured and the prescribed catheter was placed in the right base of the lung. Wall suction was applied. Post procedure images demonstrate satisfactory position of the t ube. The catheter was sutured in place and a Percu-Stay was applied. The patient tolerated the procedure well and there were no complications. The patient was sent to pos t anesthesia recovery in stable condition. FINDINGS: Frankly purulent fluid was aspirated and a sample was sent for culture CONCLUSION: Uncomplicated CT-guided right chest pigtail thoracostomy tube placement as above. Electronically signed by: Mark Milligan MD 04/23/2018 5:11 PM EDT
[2018-04-23] MEDS: HYDROmorphone PF Inj 2 MG/ML Vial IV.PUSH PRN ×2 (18:46→22:31)
[2018-04-23] MEDS: Estradiol 1 MG Tablet PO SCH (20:42)
[2018-04-24] MEDS: HYDROmorphone PF Inj 2 MG/ML Vial IV.PUSH PRN ×6 (02:23→22:40)
[2018-04-24] MEDS: Methadone 10 MG Tablet PO PRN ×3 (04:00→18:20)
[2018-04-24] MEDS: Methocarbamol 500 MG Tablet PO SCH ×3 (08:15→18:28)
[2018-04-24] MEDS: levoFLOXacin 750 MG Tablet PO SCH (08:15)
[2018-04-24] MEDS: diazePAM 5 MG Tablet PO SCH ×2 (08:15→20:36)
[2018-04-24] MEDS: clonazePAM 0.5 MG Tablet PO SCH ×2 (08:15→20:36)
[2018-04-24] MEDS: Nystatin 100,000 UNITS/GM Powder 15 GM Bottle TOPICAL SCH ×2 (08:18→20:37)
--- NOTE | 2018-04-24 10:58 | P.PNIM ---
Subjective Interval history: f/u; empyema in no acute distress. chest tube in place. no fever. at the bedside. Physical Exam Vital signs: Vital Signs 04/23/18 12:00 04/23/18 16:00 04/23/18 20:00 Temperature 98.3 F 98.1 F Pulse Rate 97 H 88 99 H Respiratory Rate 18 18 Blood Pressure 111/58 L 116/62 Pulse Oximetry 90 L 93 L 04/23/18 20:28 04/24/18 00:00 04/24/18 00:10 Temperature 98.4 F Pulse Rate 108 H 81 93 H Respiratory Rate 18 Blood Pressure 135/87 Pulse Oximetry 96 04/24/18 04:00 04/24/18 08:00 04/24/18 09:35 Temperature 98.1 F 98.3 F Pulse Rate 84 81 Respiratory Rate 18 18 18 Blood Pressure 134/60 117/64 Pulse Oximetry 97 97 Intake & Output 04/23/18 04/24/18 04/24/18 18:59 06:59 18:59 Intake Total 400 / 400 Output Total 950 / 950 750 / 750 Balance -950 / -950 -350 / -350 Weight 45.9 kg Intake: Oral 400 / 400 Output: Urine 600 / 600 Pleural Fluid 950 / 950 Chest Tube Drainage 150 / 150 Right 150 / 150 Other: Date of Last Bowel Movement 04/22/18 - Constitutional no acute distress - Routine Respiratory Exam Present: CTA bilaterally Comments: chest tube in place. - Routine Cardiovascular Exam Present: RRR - Routine Abdominal Exam Present: soft - Routine Extremities Exam Comments: no pedal edema. - Routine Neurological Exam Present: alert, oriented X3 Results - Labs CBC & Chem 7: 04/20/18 07:57 04/21/18 15:25 Microbiology 04/22/18 16:00 Fluid - Pleural fluid Gram Stain - Final 04/22/18 12:17 Bronchial Washings - Right Lower Lobe Acid Fast Bacilli Smear - Final No acid fast bacilli seen 04/22/18 12:17 Bronchial - Right Lower Lobe Gram Stain - Final 04/22/18 12:17 Bronchial - Right Lower Lobe Bronchial Culture - Preliminary Heavy growth normal respiratory renetta at 24 hours 04/21/18 15:17 Blood - Peripheral Aerobic Blood Culture - Preliminary No growth in 2 days 04/21/18 15:17 Blood - Peripheral Anaerobic Blood Culture - Preliminary No growth in 2 days 04/21/18 15:25 Blood - Peripheral Aerobic Blood Culture - Preliminary No growth in 2 days 04/21/18 15:25 Blood - Peripheral Anaerobic Blood Culture - Preliminary No growth in 2 days - Imaging Impressions Chest Tube Insertion 04/23/18 00:00 CONCLUSION: Uncomplicated CT-guided right chest pigtail thoracostomy tube placement as above. Assessment and Plan - Plan Persistent right-sided hydropneumothorax with large empyema -Consult placed to cardiothoracic surgeon for evaluation; recommended bronchoscopy. -s/p bronchoscopy 04/22- will follow the culture/biopsy. -IR consulted and the patient underwent chest tube placement. -Continue p.o. Levaquin -pulmonary / CT surgery following. -will consider ID evaluation- pending the clinical course and cultures. Coccyx pressure ulcer, stage II -consulted wound care. Physical deconditioning -PT eval and treat -Added ensure to meals when no longer npo -Consulted dietary COPD, chronic, currently not in exacerbation -Resumed home inhaler, duo nebs as needed Chronic pain -Resumed home medications methadone and Percocet Anxiety, chronic -Resumed home medications Valium and Klonopin dysuria/ UTI -continue Levaquin- UC negative- added Pyridium Hypokalemia- replaced. DVT prophylaxis: SCDs Discharge Planning: chest tube in place. not ready for discharge.
--- NOTE | 2018-04-24 15:09 | P.PN ---
Subjective Interval history: obtunded cachectic CT in place Physical Exam Vital signs: Vital Signs 04/23/18 16:00 04/23/18 20:00 04/23/18 20:28 Temperature 98.1 F Pulse Rate 88 99 H 108 H Respiratory Rate 18 Blood Pressure 116/62 Pulse Oximetry 93 L 04/24/18 00:00 04/24/18 00:10 04/24/18 04:00 Temperature 98.4 F 98.1 F Pulse Rate 81 93 H 84 Respiratory Rate 18 18 Blood Pressure 135/87 134/60 Pulse Oximetry 96 97 04/24/18 08:00 04/24/18 09:35 04/24/18 12:00 Temperature 98.3 F 98 F Pulse Rate 77 102 H Respiratory Rate 18 18 18 Blood Pressure 117/64 122/64 Pulse Oximetry 97 95 Intake & Output 04/23/18 04/24/18 04/24/18 18:59 06:59 18:59 Intake Total 400 / 400 Output Total 950 / 950 750 / 750 Balance -950 / -950 -350 / -350 Weight 45.9 kg Intake: Oral 400 / 400 Output: Urine 600 / 600 Pleural Fluid 950 / 950 Chest Tube Drainage 150 / 150 Right 150 / 150 Other: Date of Last Bowel Movement 04/22/18 - Constitutional no acute distress - Routine HEENT Exam Head: Present: normocephalic Eye: Present: EOMI, PERRL - Routine Neck Exam Present: supple - Routine Cardiovascular Exam Present: RRR - Routine Abdominal Exam Present: soft, normoactive bowel sounds Results - Labs CBC & Chem 7: 04/20/18 07:57 04/21/18 15:25 Microbiology 04/22/18 16:00 Fluid - Pleural fluid Gram Stain - Final 04/22/18 16:00 Fluid - Pleural fluid Body Fluid Culture - Preliminary No growth in 24 hours 04/22/18 12:17 Bronchial - Right Lower Lobe Gram Stain - Final 04/22/18 12:17 Bronchial - Right Lower Lobe Bronchial Culture - Final Heavy growth normal respiratory renetta 04/21/18 15:17 Blood - Peripheral Aerobic Blood Culture - Preliminary No growth in 3 days 04/21/18 15:17 Blood - Peripheral Anaerobic Blood Culture - Preliminary No growth in 3 days 04/21/18 15:25 Blood - Peripheral Aerobic Blood Culture - Preliminary No growth in 3 days 08/15/18 15:25 Blood - Peripheral Anaerobic Blood Culture - Preliminary No growth in 3 days 04/22/18 12:17 Bronchial Washings - Right Lower Lobe Acid Fast Bacilli Smear - Final No acid fast bacilli seen - Imaging Impressions Chest Tube Insertion 04/23/18 00:00 CONCLUSION: Uncomplicated CT-guided right chest pigtail thoracostomy tube placement as above.
--- NOTE | 2018-04-24 15:11 | P.PN ---
Physical Exam Vital signs: Vital Signs 04/23/18 16:00 04/23/18 20:00 04/23/18 20:28 Temperature 98.1 F Pulse Rate 88 99 H 108 H Respiratory Rate 18 Blood Pressure 116/62 Pulse Oximetry 93 L 04/24/18 00:00 04/24/18 00:10 04/24/18 04:00 Temperature 98.4 F 98.1 F Pulse Rate 81 93 H 84 Respiratory Rate 18 18 Blood Pressure 135/87 134/60 Pulse Oximetry 96 97 04/24/18 08:00 04/24/18 09:35 04/24/18 12:00 Temperature 98.3 F 98 F Pulse Rate 77 102 H Respiratory Rate 18 18 18 Blood Pressure 117/64 122/64 Pulse Oximetry 97 95 Intake & Output 04/23/18 04/24/18 04/24/18 18:59 06:59 18:59 Intake Total 400 / 400 Output Total 950 / 950 750 / 750 Balance -950 / -950 -350 / -350 Weight 45.9 kg Intake: Oral 400 / 400 Output: Urine 600 / 600 Pleural Fluid 950 / 950 Chest Tube Drainage 150 / 150 Right 150 / 150 Other: Date of Last Bowel Movement 04/22/18 Results - Labs CBC & Chem 7: 04/20/18 07:57 04/21/18 15:25 Microbiology 04/22/18 16:00 Fluid - Pleural fluid Gram Stain - Final 04/22/18 16:00 Fluid - Pleural fluid Body Fluid Culture - Preliminary No growth in 24 hours 04/22/18 12:17 Bronchial - Right Lower Lobe Gram Stain - Final 04/22/18 12:17 Bronchial - Right Lower Lobe Bronchial Culture - Final Heavy growth normal respiratory renetta 04/21/18 15:17 Blood - Peripheral Aerobic Blood Culture - Preliminary No growth in 3 days 04/21/18 15:17 Blood - Peripheral Anaerobic Blood Culture - Preliminary No growth in 3 days 04/21/18 15:25 Blood - Peripheral Aerobic Blood Culture - Preliminary No growth in 3 days 04/21/18 15:25 Blood - Peripheral Anaerobic Blood Culture - Preliminary No growth in 3 days 04/22/18 12:17 Bronchial Washings - Right Lower Lobe Acid Fast Bacilli Smear - Final No acid fast bacilli seen - Imaging Impressions Chest Tube Insertion 04/23/18 00:00 CONCLUSION: Uncomplicated CT-guided right chest pigtail thoracostomy tube placement as above. Assessment and Plan - Plan imression respiratory failure obtunded cachectic emoyema plan O2 as needed antibiotics CT drainage outlook poor
[2018-04-24] MEDS: Estradiol 1 MG Tablet PO SCH (20:36)
[2018-04-25] MEDS: Methadone 10 MG Tablet PO PRN ×4 (00:20→19:38)
[2018-04-25] MEDS: HYDROmorphone PF Inj 2 MG/ML Vial IV.PUSH PRN ×5 (02:27→21:39)
[2018-04-25] MEDS: diazePAM 5 MG Tablet PO SCH ×2 (09:13→21:07)
[2018-04-25] MEDS: clonazePAM 0.5 MG Tablet PO SCH ×2 (09:13→21:07)
[2018-04-25] MEDS: levoFLOXacin 750 MG Tablet PO SCH (09:13)
[2018-04-25] MEDS: Methocarbamol 500 MG Tablet PO SCH ×3 (09:13→17:32)
[2018-04-25] MEDS: Nystatin 100,000 UNITS/GM Powder 15 GM Bottle TOPICAL SCH ×2 (09:14→22:18)
--- NOTE | 2018-04-25 10:33 | P.PNIM ---
Subjective Interval history: f/u;empyema in no acute distress. looks more comfortable; pain is better controlled. no fever. chest tube in place. Physical Exam Vital signs: Vital Signs 04/24/18 12:00 04/24/18 16:00 04/24/18 20:00 Temperature 98 F 97.9 F 97.4 F L Pulse Rate 98 H 86 87 Respiratory Rate 18 18 16 Blood Pressure 122/64 146/71 H 131/61 Pulse Oximetry 95 96 95 04/25/18 00:00 04/25/18 00:12 04/25/18 04:00 Temperature 97.9 F 97.4 F L Pulse Rate 87 88 88 Respiratory Rate 16 18 Blood Pressure 144/90 H 163/78 H Pulse Oximetry 95 97 04/25/18 04:02 04/25/18 08:00 Temperature 98 F Pulse Rate 86 79 Respiratory Rate 18 Blood Pressure 130/55 L Pulse Oximetry 96 Intake & Output 04/24/18 04/25/18 04/25/18 18:59 06:59 18:59 Intake Total 480 / 480 240 / 240 Output Total 1100 / 1100 Balance 480 / 480 -860 / -860 Weight 46.4 kg Intake: Oral 480 / 480 240 / 240 Output: Urine 950 / 950 Chest Tube Drainage 150 / 150 Right 150 / 150 Other: # Voids 6 # Bowel Movements 1 2 - Constitutional no acute distress - Routine Respiratory Exam Present: diminished air movement (right base.) - Routine Cardiovascular Exam Present: RRR - Routine Abdominal Exam Present: soft - Routine Extremities Exam Comments: no pedal edema. - Routine Neurological Exam Present: alert, oriented X3 Results - Labs CBC & Chem 7: 04/20/18 07:57 04/21/18 15:25 Microbiology 04/22/18 16:00 Fluid - Pleural fluid Gram Stain - Final 04/22/18 16:00 Fluid - Pleural fluid Body Fluid Culture - Preliminary No growth in 48 hours 04/22/18 12:17 Bronchial - Right Lower Lobe Gram Stain - Final 04/22/18 12:17 Bronchial - Right Lower Lobe Bronchial Culture - Final Heavy growth normal respiratory renetta 04/21/18 15:17 Blood - Peripheral Aerobic Blood Culture - Preliminary No growth in 3 days 04/21/18 15:17 Blood - Peripheral Anaerobic Blood Culture - Preliminary No growth in 3 days 04/21/18 15:25 Blood - Peripheral Aerobic Blood Culture - Preliminary No growth in 3 days 04/21/18 15:25 Blood - Peripheral Anaerobic Blood Culture - Preliminary No growth in 3 days Assessment and Plan - Plan Persistent right-sided hydropneumothorax with large empyema -s/p bronchoscopy and later on chest tube placement. -fluid cultures negative so far. -Continue p.o. Levaquin -pulmonary / CT surgery following. -will consider ID evaluation- pending the clinical course and cultures. Coccyx pressure ulcer, stage II -consulted wound care. Physical deconditioning -PT eval and treat -Added ensure to meals when no longer npo -Consulted dietary COPD, chronic, currently not in exacerbation -Resumed home inhaler, duo nebs as needed Chronic pain -Resumed home medications methadone and Percocet Anxiety, chronic -Resumed home medications Valium and Klonopin dysuria/ possible UTI -continue Levaquin-- added Pyridium Hypokalemia- replaced. DVT prophylaxis: SCDs Discharge Planning: chest tube in place. not ready for discharge.
--- NOTE | 2018-04-25 16:20 | P.PN ---
Subjective Interval history: seebs more comfortable today nad sitting in bed Physical Exam Vital signs: Vital Signs 04/24/18 20:00 04/25/18 00:00 04/25/18 00:12 Temperature 97.4 F L 97.9 F Pulse Rate 87 87 88 Respiratory Rate 16 16 Blood Pressure 131/61 144/90 H Pulse Oximetry 95 95 04/25/18 04:00 04/25/18 04:02 04/25/18 08:00 Temperature 97.4 F L 98 F Pulse Rate 88 86 79 Respiratory Rate 18 18 Blood Pressure 163/78 H 130/55 L Pulse Oximetry 97 96 04/25/18 12:00 Temperature Pulse Rate 103 H Respiratory Rate Blood Pressure Pulse Oximetry Intake & Output 04/24/18 04/25/18 04/25/18 18:59 06:59 18:59 Intake Total 480 / 480 240 / 240 Output Total 1100 / 1100 Balance 480 / 480 -860 / -860 Weight 46.4 kg Intake: Oral 480 / 480 240 / 240 Output: Urine 950 / 950 Chest Tube Drainage 150 / 150 Right 150 / 150 Other: # Voids 6 # Bowel Movements 1 2 - Constitutional no acute distress - Routine HEENT Exam Head: Present: normocephalic - Routine Neck Exam Present: supple - Routine Cardiovascular Exam Present: RRR, S1, S2 - Routine Neurological Exam Present: alert, oriented X3 Results - Labs CBC & Chem 7: 04/20/18 07:57 04/21/18 15:25 Microbiology 04/21/18 15:17 Blood - Peripheral Aerobic Blood Culture - Preliminary No growth in 4 days 04/21/18 15:17 Blood - Peripheral Anaerobic Blood Culture - Preliminary No growth in 4 days 04/21/18 15:25 Blood - Peripheral Aerobic Blood Culture - Preliminary No growth in 4 days 04/21/18 15:25 Blood - Peripheral Anaerobic Blood Culture - Preliminary No growth in 4 days 04/22/18 16:00 Fluid - Pleural fluid Gram Stain - Final 04/22/18 16:00 Fluid - Pleural fluid Body Fluid Culture - Preliminary No growth in 48 hours 04/22/18 12:17 Bronchial - Right Lower Lobe Gram Stain - Final 04/22/18 12:17 Bronchial - Right Lower Lobe Bronchial Culture - Final Heavy growth normal respiratory renetta Assessment and Plan - Plan imression respiratory failure alert today cachectic empyema plan O2 as needed antibiotics CT drainage
[2018-04-25] MEDS: Estradiol 1 MG Tablet PO SCH (21:07)
[2018-04-26] MEDS: Methadone 10 MG Tablet PO PRN ×4 (01:48→20:02)
[2018-04-26] MEDS: HYDROmorphone PF Inj 2 MG/ML Vial IV.PUSH PRN ×3 (01:50→18:03)
[2018-04-26] MEDS: diazePAM 5 MG Tablet PO SCH ×2 (08:00→20:04)
[2018-04-26] MEDS: levoFLOXacin 750 MG Tablet PO SCH (08:00)
[2018-04-26] MEDS: clonazePAM 0.5 MG Tablet PO SCH ×2 (08:00→20:04)
[2018-04-26] MEDS: Nystatin 100,000 UNITS/GM Powder 15 GM Bottle TOPICAL SCH ×2 (08:27→20:05)
[2018-04-26] MEDS: Methocarbamol 500 MG Tablet PO SCH ×3 (08:27→18:03)
[2018-04-26 10:19] LABS: Baso # (Auto) 0.1 th/mm3 (0.0-0.2); Baso % (Auto) 0.7 % (0.0-2.0); Eos # (Auto) 0.1 th/mm3 (0.0-0.4); Eos % (Auto) 1.2 % (0.0-4.0); Hematocrit 35.1 % (35.0-46.0); Hemoglobin 10.8 gm/dL (11.6-15.3); Lymph # (Auto) 1.9 th/mm3 (1.0-4.8); Lymph % (Auto) 19.4 % (9.0-44.0); Mean Corpuscular Hemoglobin 27.1 pg (27.0-34.0); Mean Platelet Volume 7.1 fL (7.0-11.0); Mono # (Auto) 0.5 th/mm3 (0.0-0.9); Neut # (Auto) 7.3 th/mm3 (1.8-7.7); Neut % (Auto) 73.7 % (16.0-70.0); Platelet Count 596 th/mm3 (150-450); Red Blood Count 3.99 mil/mm3 (4.00-5.30); Red Cell Distribution Width 20.1 % (11.6-17.2); White Blood Count 9.8 th/mm3 (4.0-11.0)
[2018-04-26 10:20] LABS: Mean Corpuscular HGB Conc 30.8 % (32.0-36.0)
[2018-04-26 10:44] LABS: Anion Gap 8 meq/L (5-15); Blood Urea Nitrogen 13 mg/dL (7-18); Calcium 9.3 mg/dL (8.5-10.1); Carbon Dioxide 31.2 meq/L (21.0-32.0); Chloride 102 meq/L (98-107); Glomerular Filtration Rate Greater Than 89 mL/min (>89); Glucose,Random 139 mg/dL (74-106); Potassium 4.3 meq/L (3.5-5.1); Sodium 141 meq/L (136-145)
--- NOTE | 2018-04-26 10:49 | P.PNIM ---
Subjective Interval history: in no acute distress. chest tube in place. pain is controlled. no sob. d/w the RN and no acute issues over night. Physical Exam Vital signs: Vital Signs 04/25/18 12:00 04/25/18 16:00 04/25/18 20:00 Temperature 98.1 F 98 F 97.4 F L Pulse Rate 99 H 95 H 119 H Respiratory Rate 18 20 20 Blood Pressure 133/62 146/79 H 109/61 Pulse Oximetry 95 98 99 04/26/18 00:00 04/26/18 04:00 04/26/18 08:00 Temperature 98 F 98.2 F 98.7 F Pulse Rate 87 85 86 Respiratory Rate 19 16 18 Blood Pressure 111/56 L 137/63 146/83 H Pulse Oximetry 94 L 93 L 91 L Intake & Output 04/25/18 04/26/18 04/26/18 18:59 06:59 18:59 Intake Total 240 / 240 Output Total 150 / 150 500 / 500 Balance -150 / -150 -260 / -260 Weight 45.9 kg Intake: Oral 240 / 240 Output: Urine 450 / 450 Chest Tube Drainage 150 / 150 50 / 50 Right 150 / 150 50 / 50 Other: Date of Last Bowel Movement 04/25/18 # Bowel Movements 1 - Constitutional no acute distress - Routine Respiratory Exam Present: CTA bilaterally (chest tube in place.) - Routine Cardiovascular Exam Present: RRR - Routine Abdominal Exam Present: soft - Routine Extremities Exam Comments: no pedal edema. - Routine Neurological Exam Present: alert, oriented X3 Results - Labs CBC & Chem 7: 04/26/18 09:52 04/26/18 09:52 Laboratory Results - last 24 hr 04/26/18 04/26/18 09:52 09:52 WBC 9.8 RBC 3.99 L Hgb 10.8 L Hct 35.1 MCV 88.0 MCH 27.1 MCHC 30.8 L RDW 20.1 H Plt Count 596 H MPV 7.1 Prelim Diff (Auto) Slide review pending Neut % (Auto) 73.7 H Lymph % (Auto) 19.4 [place] % (Auto) 5.0 Eos % (Auto) 1.2 Baso % (Auto) 0.7 Neut # (Auto) 7.3 Lymph # (Auto) 1.9 [place] # (Auto) 0.5 Eos # (Auto) 0.1 Baso # (Auto) 0.1 Differential Comment . Sodium 141 Potassium 4.3 Chloride 102 Carbon Dioxide 31.2 Anion Gap 8 BUN 13 Creatinine 0.54 Estimated GFR Greater than 89 Random Glucose 139 H Calcium 9.3 Microbiology 04/22/18 16:00 Fluid - Pleural fluid Gram Stain - Final 04/22/18 16:00 Fluid - Pleural fluid Body Fluid Culture - Final No growth in 72 hours (aerobically and anaerobically ) 04/21/18 15:17 Blood - Peripheral Aerobic Blood Culture - Preliminary No growth in 4 days 04/21/18 15:17 Blood - Peripheral Anaerobic Blood Culture - Preliminary No growth in 4 days 04/21/18 15:25 Blood - Peripheral Aerobic Blood Culture - Preliminary No growth in 4 days 04/21/18 15:25 Blood - Peripheral Anaerobic Blood Culture - Preliminary No growth in 4 days Assessment and Plan - Plan Persistent right-sided hydropneumothorax with large empyema -s/p bronchoscopy and later on chest tube placement. -fluid cultures negative so far. -Continue p.o. Levaquin -pulmonary / CT surgery following. Coccyx pressure ulcer, stage II -consulted wound care. Physical deconditioning -PT eval and treat -Added ensure to meals when no longer npo -Consulted dietary COPD, chronic, currently not in exacerbation -Resumed home inhaler, duo nebs as needed Chronic pain -Resumed home medications methadone and Percocet Anxiety, chronic -Resumed home medications Valium and Klonopin dysuria/ possible UTI -continue Levaquin-- added Pyridium Hypokalemia- replaced. DVT prophylaxis: SCDs Discharge Planning: chest tube in place. awaiting CT surgery/ pulmonary f/u and recommendations. not ready for discharge.
--- NOTE | 2018-04-26 10:55 | XR ---
EXAM DATE: 04/26/2018 10:36 AM EDT AGE/SEX: 72 years / Female INDICATIONS: Shortness of breath. Possible pleural effusions. CLINICAL DATA: This is the patient's subsequent encounter. Patient reports that signs and symptoms h ave been present for 4 - 6 days and indicates a pain score of 0/10. MEDICAL/SURGICAL HISTORY: Chronic obstructive pulmonary disease. . Right chest tube. COMPARISON: [facility] – [place], CHEST 1V SINGLE AP, 04/20/2018. . FINDINGS: A right base pigtail thoracostomy tube is present. There has been significant interval evacuation of pleural fluid. A loculated right base pneumothorax is now present with approximately 16 mm maximum se paration of pleural layers. There is some residual scarring or atelectatic change in the right base [place] parenchyma. The left lung is stable and clear. Cardiac contours are satisfactory. CONCLUSION: Interval near-complete evacuation of right base empyema. The lung bases parenchyma is tethered and there is a small loculated lateral base pneumothorax. Further reexpansion may be augmented by instillation of some TPA which will be attempted this morning . Electronically signed by: Mark Milligan MD 04/26/2018 10:54 AM EDT
[2018-04-26 12:01] LABS: Stomatocytes 1+
[2018-04-26] MEDS ORDERED: Cathflo Activase Inj 2 MG Vial ONE (13:00)
--- NOTE | 2018-04-26 17:05 | P.PNCV ---
- Note Subjective/Hospital Course: 72y/o cachectic female presents with large loculated right pleural effusion. She had a pleural fluid culture at [place] grow Strep and was ultimately transferred here for further management. Chest CT was performed on admission here and shows right lower lobe atelectasis with and what appears to be obstruction of the RLL bronchus or bronchus intermedius. Pleural effusion cytology from [place] was reportedly negative for malignancy. 04/23 s/p Bronch . All airways were patent, though there was no obstruction./ cultures pending IR eval for right thoracentesis / send fluid for studies 04/26 s/p pig tail placement / no growth in pleural fluid to date bronch washing with some yeast CXR improved , no surgical intervention warranted continue CT as per IR , antibiotics will see prn Objective: Vital Signs - 24 hr 04/25/18 20:00 04/26/18 00:00 04/26/18 04:00 Temperature 97.4 F L 98 F 98.2 F Pulse Rate 119 H 87 85 Respiratory Rate 20 19 16 Blood Pressure 109/61 111/56 L 137/63 Pulse Oximetry 99 94 L 93 L 04/26/18 08:00 04/26/18 12:00 04/26/18 15:40 Temperature 98.7 F 97.7 F 97.7 F Pulse Rate 92 H 95 H Respiratory Rate 18 16 18 Blood Pressure 146/83 H 107/59 L 107/59 L Pulse Oximetry 95 96 95 GENERAL: A&O x 3 SKIN: Warm and dry. HEAD: Normocephalic. EYES: No scleral icterus. No injection or drainage. NECK: Supple, trachea midline. No JVD or lymphadenopathy. CARDIOVASCULAR: Regular rate and rhythm without murmurs, gallops, or rubs. RESPIRATORY: Breath sounds equal bilaterally. No accessory muscle use. right chest tube with serous drainage GASTROINTESTINAL: Abdomen soft, non-tender, nondistended. MUSCULOSKELETAL: No cyanosis, or edema. BACK: Nontender without obvious deformity. No CVA tenderness. Labs: Laboratory Results - last 12 hr 04/26/18 04/26/18 09:52 09:52 WBC 9.8 RBC 3.99 L Hgb 10.8 L Hct 35.1 MCV 88.0 MCH 27.1 MCHC 30.8 L RDW 20.1 H Plt Count 596 H MPV 7.1 Prelim Diff (Auto) Slide review pending Neut % (Auto) 73.7 H Lymph % (Auto) 19.4 [place] % (Auto) 5.0 Eos % (Auto) 1.2 Baso % (Auto) 0.7 Neut # (Auto) 7.3 Lymph # (Auto) 1.9 [place] # (Auto) 0.5 Eos # (Auto) 0.1 Baso # (Auto) 0.1 WBC Differential . Diff Scan Auto diff confirmed Differential Comment . Stomatocytes 1+ H Sodium 141 Potassium 4.3 Chloride 102 Carbon Dioxide 31.2 Anion Gap 8 BUN 13 Creatinine 0.54 Estimated GFR Greater than 89 Random Glucose 139 H Calcium 9.3 Result Diagrams: 04/26/18 09:52 04/26/18 09:52 - Plan (1) Loculated pleural effusion Plan: s/ p pigtail cath placement no growth in fluid
[2018-04-26] MEDS: Estradiol 1 MG Tablet PO SCH (20:03)
[2018-04-27] MEDS: HYDROmorphone PF Inj 2 MG/ML Vial IV.PUSH PRN ×6 (02:02→22:00)
[2018-04-27] MEDS: Methadone 10 MG Tablet PO PRN ×4 (02:03→20:02)
[2018-04-27] MEDS: clonazePAM 0.5 MG Tablet PO SCH ×2 (08:55→20:04)
[2018-04-27] MEDS: levoFLOXacin 750 MG Tablet PO SCH (08:55)
[2018-04-27] MEDS: Methocarbamol 500 MG Tablet PO SCH ×3 (08:55→18:01)
[2018-04-27] MEDS: diazePAM 5 MG Tablet PO SCH ×2 (08:56→20:04)
[2018-04-27] MEDS: Nystatin 100,000 UNITS/GM Powder 15 GM Bottle TOPICAL SCH ×2 (08:57→20:04)
--- NOTE | 2018-04-27 09:01 | XR ---
EXAM DATE: 04/27/2018 8:36 AM EDT AGE/SEX: 72 years / Female INDICATIONS: Evaluate pneumothorax. CLINICAL DATA: This is the patient's initial encounter. Patient reports that signs and symptoms have been present for 3 days and indicates a pain score of 4/10. MEDICAL/SURGICAL HISTORY: Chronic obstructive pulmonary disease. None. [place] [facility] [place]. . FINDINGS: There has been little change from yesterday's exam. Right base pigtail thoracostomy tube remains in p lace. Loculated right base pneumothorax is grossly stable. Some scarring and retraction of the basila r parenchyma is grossly unchanged. Left lung is stable and clear. Cardiac contours are unchanged. CONCLUSION: No significant interval change Electronically signed by: Mark Milligan MD 04/27/2018 8:59 AM EDT
--- NOTE | 2018-04-27 11:42 | P.PNIM ---
Subjective Interval history: f/u; empyema in no acute distress. no fever. pain seems to be fairly controlled although she's asking for ' more pain meds' . d/w the RN. Physical Exam Vital signs: Vital Signs 04/26/18 12:00 04/26/18 15:40 04/26/18 16:00 Temperature 97.7 F 97.7 F Pulse Rate 95 H 105 H Respiratory Rate 16 18 Blood Pressure 107/59 L 107/59 L Pulse Oximetry 96 95 04/26/18 20:00 04/26/18 20:26 04/27/18 00:00 Temperature 97.7 F 97.8 F Pulse Rate 114 H 93 H 102 H Respiratory Rate 18 16 Blood Pressure 132/79 119/67 Pulse Oximetry 94 L 96 04/27/18 00:06 04/27/18 03:52 04/27/18 04:00 Temperature 97.8 F Pulse Rate 99 H 83 87 Respiratory Rate 18 Blood Pressure 141/80 H Pulse Oximetry 95 04/27/18 08:00 Temperature 99.0 F Pulse Rate 99 H Respiratory Rate 18 Blood Pressure 153/70 H Pulse Oximetry 97 Intake & Output 04/26/18 04/27/18 04/27/18 18:59 06:59 18:59 Intake Total 240 / 240 480 / 480 Output Total 210 / 210 650 / 650 Balance 30 / 30 -170 / -170 Weight 44.3 kg Intake: Oral 240 / 240 480 / 480 Output: Urine 500 / 500 Chest Tube Drainage 210 / 210 150 / 150 Right 210 / 210 150 / 150 Other: # Voids 4 Date of Last Bowel Movement 04/27/18 # Bowel Movements 1 1 - Constitutional no acute distress - Routine Respiratory Exam Present: CTA bilaterally Comments: chest tube in place. - Routine Cardiovascular Exam Present: RRR - Routine Abdominal Exam Present: soft - Routine Extremities Exam Comments: no pedal edema. - Routine Neurological Exam Present: alert, oriented X3 Results - Labs CBC & Chem 7: 04/26/18 09:52 04/26/18 09:52 Laboratory Results - last 24 hr 04/26/18 09:52 WBC Differential . Diff Scan Auto diff confirmed Stomatocytes 1+ H Microbiology 04/22/18 12:17 Bronchial Washings - Right Lower Lobe Fungal Smear - Final Rare budding yeast 04/22/18 12:17 Bronchial Washings - Right Lower Lobe Fungal Culture - Preliminary 04/21/18 15:17 Blood - Peripheral Aerobic Blood Culture - Final No growth in 5 days 04/21/18 15:17 Blood - Peripheral Anaerobic Blood Culture - Final No growth in 5 days 04/21/18 15:25 Blood - Peripheral Aerobic Blood Culture - Final No growth in 5 days 04/21/18 15:25 Blood - Peripheral Anaerobic Blood Culture - Final No growth in 5 days 04/22/18 16:00 Fluid - Pleural fluid Gram Stain - Final 04/22/18 16:00 Fluid - Pleural fluid Body Fluid Culture - Final No growth in 72 hours (aerobically and anaerobically ) - Imaging Impressions Chest X-Ray 04/27/18 08:00 CONCLUSION: No significant interval change Assessment and Plan - Plan Persistent right-sided hydropneumothorax with large empyema -s/p bronchoscopy and later on chest tube placement. -fluid cultures negative so far. -Continue p.o. Levaquin. -no further surgical intervention per CT surgery. -pulmonary and IR following. Coccyx pressure ulcer, stage II -consulted wound care. Physical deconditioning -PT eval and treat -Added ensure to meals when no longer npo -Consulted dietary COPD, chronic, currently not in exacerbation -Resumed home inhaler, duo nebs as needed Chronic pain -Resumed home medications methadone and Percocet Anxiety, chronic -Resumed home medications Valium and Klonopin dysuria/ possible UTI -continue Levaquin-- added Pyridium Hypokalemia- replaced. DVT prophylaxis: SCDs Discharge Planning: chest tube in place. awaiting CT surgery/ pulmonary f/u and recommendations. not ready for discharge.
--- NOTE | 2018-04-27 15:52 | P.DIET ---
Nutritional Evaluation Type of nutrition evaluation: follow-up Nutrition consult regarding: Diet Evaluation ([facility] [place] for Malnutrition) Objective - Diagnosis Medical - Objective % IBW: 78 (YCJ=566#) Body Weight Used for Calculations: IBW (56.8kg) Energy Needs - Lower Range (kCal/kg): 25 Energy Needs - Upper Range (kCal/kg): 30 Lower Limit kCal/kg (kCals): 1,420 Upper Limit kCal/kg (kCals): 1,704 Lower Limit Protein Factor (Grams per Kg): 1.0 Upper Limit Protein Factor (Grams per Kg): 1.2 Lower Protein Needs (Protein): 57 Upper Protein Needs (Protein): 68 Dietitian Reviewed in Medical Record: Current diet, Curent medications, Intake & Output, Labs, Wound/DTI Diet Order: Regular Wound Care Note: 04/21 WOCN Note: Stage II sacral pressure injury Feeding - Current PO Supplement Current Supplement: Ensure Enlive Current Frequency of Supplement: Three times a day Current kCals Provided by Supplement: 350 Current Protein Provided by Supplement: 20 Assessment Assessment: Pt remains on a Regular diet and this remains appropriate. Pt is drinking Enlive supplements. She is eating better, usually 50-100% of her meals. Per WOCN note, she has a stage II pressure injury to her sacrum. Continue current POC. RD following. Recommendations: 1. Continue current POC. 2. Enlive TID. Dietitian to Monitor: Lab values, Supplement acceptance, Intake & Output, Diet tolerance, Weight change, PO Intake, Medical course
[2018-04-27] MEDS: Estradiol 1 MG Tablet PO SCH (20:03)
--- NOTE | 2018-04-28 00:33 | CT ---
EXAM DATE: 04/28/2018 12:25 AM EDT AGE/SEX: 72 years / Female INDICATIONS: Shortness of breath. CLINICAL DATA: This is the patient's initial encounter. Patient reports that signs and symptoms have been present for 1 day and indicates a pain score of 5/10. MEDICAL/SURGICAL HISTORY: Gastroesophageal reflux disease. Chronic obstructive pulmonary disease. . thoracentesis RADIATION DOSE: 3.37 CTDI (mGy) COMPARISON: [facility] [place] CHEST [place]/O CONTRAST, 04/20/2018. . TECHNIQUE: Multiple contiguous axial images were obtained through the chest without contrast. Image s were obtained in suspended respiration using multiple row detector helical technique. Using automa vanita exposure control and adjustment of the mA and/or kV according to patient size, radiation dose was kept as low as reasonably achievable to obtain optimal diagnostic quality images. DICOM format imag e data is available electronically for review and comparison. FINDINGS: Lungs: Again seen is complete opacification of the lumen of the bronchus intermedius with extension into the middle lobe and lower lobe segmental branches. This is either debris or fluid given its dens ity. This finding is similar to the prior study. Mild linear atelectasis versus scarring within the r ight lower lobe. This is less pronounced from the prior study. A small area of groundglass infiltrate is seen within the lateral basilar segment of the left lower lobe which is a new finding from the pr ior study. It measures approximately 2 cm in diameter. The remaining lungs are clear. Emphysematous c hanges are noted.. Mediastinum: No evidence of mediastinal or hilar adenopathy/mass. The heart is normal in size. Coron rayo artery atherosclerotic calcifications are noted. The aorta and pulmonary arteries are normal in c aliber. . Pleurae: A small caliber right thoracostomy tube is in good location. The hydropneumothorax on the r ight has decreased considerably in size. There is circumferential pleural thickening and residual pne umothorax but no significant fluid.. Axillae: Unremarkable. Bony Structures: Unremarkable. Miscellaneous: The examination was extended to include the upper abdomen, and both adrenal glands ar e normal in size and configuration. Left renal cyst noted. CONCLUSION: 1. The hydropneumothorax on the right is smaller and a right-sided thoracostomy tube is in good posi tion. A pneumothorax does persist which shows circumferential pleural thickening but no residual flui d is noted. 2. Small 2 cm area of groundglass infiltrate within the left lung base is new. 3. Right basilar atelectasis versus scarring is improved somewhat. 4. Residual debris/fluid obscuring the bronchus intermedius, right lower lobe and right middle lobe segmental branches. This is stable from the prior study. Electronically signed by: Jose Wolff MD 04/28/2018 12:32 AM EDT
[2018-04-28] MEDS: HYDROmorphone PF Inj 2 MG/ML Vial IV.PUSH PRN ×5 (01:58→21:19)
[2018-04-28] MEDS: Methadone 10 MG Tablet PO PRN ×4 (01:58→19:40)
[2018-04-28] MEDS: Methocarbamol 500 MG Tablet PO SCH ×3 (08:03→18:43)
[2018-04-28] MEDS: levoFLOXacin 750 MG Tablet PO SCH (08:04)
[2018-04-28] MEDS: clonazePAM 0.5 MG Tablet PO SCH ×2 (08:04→20:21)
[2018-04-28] MEDS: diazePAM 5 MG Tablet PO SCH ×2 (08:05→20:21)
[2018-04-28] MEDS: Nystatin 100,000 UNITS/GM Powder 15 GM Bottle TOPICAL SCH ×2 (09:06→20:21)
--- NOTE | 2018-04-28 10:29 | P.PNIM ---
Subjective Interval history: f/u; empyema in no acute distress. chest tube in place. looked comfortable when I saw her although she's still complaining of pain. no fever. Physical Exam Vital signs: Vital Signs 04/27/18 12:00 04/27/18 15:19 04/27/18 16:00 Temperature 98.4 F 98.6 F Pulse Rate 100 H 113 H 100 H Respiratory Rate 16 18 Blood Pressure 107/54 L 105/59 L Pulse Oximetry 96 97 04/27/18 20:00 04/27/18 23:06 04/28/18 00:00 Temperature 98.1 F 98.1 F Pulse Rate 89 98 H 107 H Respiratory Rate 18 16 Blood Pressure 113/55 L 108/57 L Pulse Oximetry 92 L 97 04/28/18 03:12 04/28/18 04:00 04/28/18 08:00 Temperature 98.6 F 97.3 F L Pulse Rate 103 H 84 94 H Respiratory Rate 18 20 Blood Pressure 103/63 135/69 Pulse Oximetry 96 94 L Intake & Output 04/27/18 04/28/18 04/28/18 18:59 06:59 18:59 Intake Total 540 / 540 Output Total 575 / 575 70 / 70 Balance -35 / -35 -70 / -70 Weight 44.8 kg Intake: Oral 540 / 540 Output: Urine 400 / 400 Chest Tube Drainage 175 / 175 70 / 70 Right 175 / 175 70 / 70 Other: Date of Last Bowel Movement 04/27/18 04/27/18 # Bowel Movements 2 - Constitutional no acute distress - Routine Respiratory Exam Present: CTA bilaterally - Routine Cardiovascular Exam Present: RRR - Routine Abdominal Exam Present: soft - Routine Extremities Exam Comments: no pedal edema. - Routine Neurological Exam Present: alert, oriented X3 Results - Labs CBC & Chem 7: 04/26/18 09:52 04/26/18 09:52 Microbiology 04/22/18 12:17 Bronchial Washings - Right Lower Lobe Fungal Smear - Final Rare budding yeast 04/22/18 12:17 Bronchial Washings - Right Lower Lobe Fungal Culture - Preliminary - Imaging Impressions Chest CT 04/28/18 00:00 CONCLUSION: 1. The hydropneumothorax on the right is smaller and a right-sided thoracostomy tube is in good position. A pneumothorax does persist which shows circumferential pleural thickening but no residual fluid is noted. 2. Small 2 cm area of groundglass infiltrate within the left lung base is new. 3. Right basilar atelectasis versus scarring is improved somewhat. 4. Residual debris/fluid obscuring the bronchus intermedius, right lower lobe and right middle lobe segmental branches. This is stable from the prior study. Assessment and Plan - Plan Persistent right-sided hydropneumothorax with large empyema -s/p bronchoscopy and later on chest tube placement. -fluid cultures negative so far. -repeated CT chest with persistent pneumothorax, LLL groudglass infiltrate. -Continue p.o. Levaquin. -no further surgical intervention per CT surgery. -pulmonary and IR following. Coccyx pressure ulcer, stage II -consulted wound care. Physical deconditioning -PT eval and treat -Added ensure to meals when no longer npo -Consulted dietary COPD, chronic, currently not in exacerbation -Resumed home inhaler, duo nebs as needed Chronic pain -Resumed home medications methadone and Percocet Anxiety, chronic -Resumed home medications Valium and Klonopin dysuria/ possible UTI -continue Levaquin-- added Pyridium Hypokalemia- replaced. DVT prophylaxis: SCDs Discharge Planning: chest tube in place. awaiting CT surgery/ pulmonary f/u and recommendations. not ready for discharge.
--- NOTE | 2018-04-28 17:31 | XR ---
EXAM DATE: 04/28/2018 5:20 PM EDT AGE/SEX: 72 years / Female INDICATIONS: F/U Chest tube removal. CLINICAL DATA: This is the patient's subsequent encounter. Patient reports that signs and symptoms h ave been present for 4 - 6 days and indicates a pain score of 0/10. MEDICAL/SURGICAL HISTORY: Chronic obstructive pulmonary disease. None. COMPARISON: [facility] [place], CT CHEST TUBE placement RIGHT, 04/23/2018. . FINDINGS: Chest tube has been removed on the right. Large peripheral rind is present keeping the right lung fro m reexpanding. The left lung is clear. The heart and pulmonary vascularity are normal. The portion of the bony skeleton visualized is unremarkable. CONCLUSION: Persistent pneumothorax right lower lobe. Large pleural peel around the right lower lung. Electronically signed by: Felice Hough MD 04/28/2018 5:29 PM EDT
[2018-04-28] MEDS: Estradiol 1 MG Tablet PO SCH (20:20)
[2018-04-29] MEDS: HYDROmorphone PF Inj 2 MG/ML Vial IV.PUSH PRN ×4 (01:21→22:18)
[2018-04-29] MEDS: Methadone 10 MG Tablet PO PRN ×3 (01:24→18:26)
[2018-04-29] MEDS: clonazePAM 0.5 MG Tablet PO SCH ×2 (08:13→20:23)
[2018-04-29] MEDS: levoFLOXacin 750 MG Tablet PO SCH (08:13)
[2018-04-29] MEDS: diazePAM 5 MG Tablet PO SCH ×2 (08:13→20:23)
[2018-04-29] MEDS: Methocarbamol 500 MG Tablet PO SCH ×3 (08:13→18:25)
[2018-04-29] MEDS: Nystatin 100,000 UNITS/GM Powder 15 GM Bottle TOPICAL SCH ×2 (08:13→20:27)
--- NOTE | 2018-04-29 09:33 | XR ---
EXAM DATE: 04/29/2018 9:26 AM EDT AGE/SEX: 72 years / Female INDICATIONS: Pneumothorax. CLINICAL DATA: This is the patient's initial encounter. Patient reports that signs and symptoms have been present for 4 - 6 days and indicates a pain score of 0/10. MEDICAL/SURGICAL HISTORY: Chronic obstructive pulmonary disease. Gastroesophageal reflux disea se. . thoracentesis COMPARISON: [facility], CHEST 1V SINGLE AP, 04/28/2018. . FINDINGS: Today's exam is compared to the prior study. It continues to be a loculated right-sided pneumothorax near the right costophrenic angle with approximately 2 cm of separation. There is no significant maldonado ge in the pleural-parenchymal infiltrates in the right lung base. The left lung is grossly clear. The heart size is stable. The bony structures are stable. CONCLUSION: No significant change compared to the prior exam with a persistent loculated right-sided pneumothorax with approximately 2 cm of separation. No change in the pleural-parenchymal infiltrate in the right lung base. Electronically signed by: Tay Renner MD 04/29/2018 9:31 AM EDT
--- NOTE | 2018-04-29 11:14 | P.PNIM ---
Subjective Interval history: f/u; empyema in no acute distress. chest tube has been removed. pain is controlled with no sob. no fever. Physical Exam Vital signs: Vital Signs 04/28/18 12:00 04/28/18 16:00 04/28/18 20:00 Temperature 97.8 F 97.8 F 97.9 F Pulse Rate 114 H 87 96 H Respiratory Rate 20 20 18 Blood Pressure 116/66 122/75 123/94 H Pulse Oximetry 93 L 93 L 94 L 04/28/18 23:35 04/29/18 00:00 04/29/18 03:35 Temperature 97.9 F 97.9 F Pulse Rate 86 95 H 89 Respiratory Rate 18 18 Blood Pressure 129/72 138/76 Pulse Oximetry 94 L 92 L 04/29/18 04:00 04/29/18 08:00 Temperature 97.9 F Pulse Rate 80 99 H Respiratory Rate 17 Blood Pressure 147/84 H Pulse Oximetry 100 Intake & Output 04/28/18 04/29/18 04/29/18 18:59 06:59 18:59 Output Total 100 / 100 Balance -100 / -100 Output: Chest Tube Drainage 100 / 100 Right 100 / 100 Other: Date of Last Bowel Movement 04/27/18 04/29/18 - Constitutional no acute distress - Routine Respiratory Exam Present: CTA bilaterally - Routine Cardiovascular Exam Present: RRR - Routine Abdominal Exam Present: soft - Routine Extremities Exam Comments: no pedal edema. - Routine Neurological Exam Present: alert, oriented X3 Results - Labs CBC & Chem 7: 04/26/18 09:52 04/26/18 09:52 - Imaging Impressions Chest X-Ray 04/28/18 00:00 CONCLUSION: Persistent pneumothorax right lower lobe. Large pleural peel around the right lower lung. Chest X-Ray 04/29/18 09:00 CONCLUSION: No significant change compared to the prior exam with a persistent loculated right-sided pneumothorax with approximately 2 cm of separation. No change in the pleural-parenchymal infiltrate in the right lung base. Assessment and Plan - Plan Persistent right-sided hydropneumothorax with large empyema -s/p bronchoscopy and later on chest tube placement which was removed on 04/28. -fluid cultures negative so far. -repeated CT chest with persistent pneumothorax, LLL ground glass infiltrate. -Levaquin stopped per my d/w . -no further surgical intervention per CT surgery. -pulmonary and IR following. Coccyx pressure ulcer, stage II -consulted wound care. Physical deconditioning -PT eval and treat -Added ensure to meals when no longer npo -Consulted dietary COPD, chronic, currently not in exacerbation -Resumed home inhaler, duo nebs as needed Chronic pain -Resumed home medications methadone and Percocet Anxiety, chronic -Resumed home medications Valium and Klonopin dysuria/ possible UTI -continue Levaquin-- added Pyridium Hypokalemia- replaced. DVT prophylaxis: SCDs Discharge Planning: when cleared by pulmonary.
--- NOTE | 2018-04-29 15:50 | IR ---
EXAM DATE: 04/29/2018 1:02 PM EDT AGE/SEX: 72 years / Female INDICATIONS: COMPARISON: No prior exams available for comparison. DEVICE(S): Vaseline occlusive dressing gauze+tape CXR to follow PROCEDURE: 1. Chest tube removal. Using aseptic technique the previously placed chest tube was easily removed in one piece and Vaseline gauze and sterile dressing was applied. Chest radiograph is to be obtained. CONCLUSION: Uncomplicated chest tube removal. Electronically signed by: Mark Milligan MD 04/29/2018 3:49 PM EDT
[2018-04-29] MEDS: Estradiol 1 MG Tablet PO SCH (20:23)
[2018-04-30] MEDS: Methadone 10 MG Tablet PO PRN ×3 (00:26→12:19)
[2018-04-30] MEDS: HYDROmorphone PF Inj 2 MG/ML Vial IV.PUSH PRN ×2 (08:49→13:22)
[2018-04-30] MEDS: levoFLOXacin 750 MG Tablet PO SCH (08:50)
[2018-04-30] MEDS: clonazePAM 0.5 MG Tablet PO SCH (08:50)
[2018-04-30] MEDS: Nystatin 100,000 UNITS/GM Powder 15 GM Bottle TOPICAL SCH (08:50)
[2018-04-30] MEDS: diazePAM 5 MG Tablet PO SCH (08:50)
[2018-04-30] MEDS: Methocarbamol 500 MG Tablet PO SCH ×2 (08:50→12:20)
--- NOTE | 2018-04-30 09:19 | XR ---
EXAM DATE: 04/30/2018 9:14 AM EDT AGE/SEX: 72 years / Female INDICATIONS: Shortness of breath. CLINICAL DATA: This is the patient's subsequent encounter. Patient reports that signs and symptoms h ave been present for 3 days and indicates a pain score of 0/10. MEDICAL/SURGICAL HISTORY: Chronic obstructive pulmonary disease. None. COMPARISON: [facility] [place], CHEST 1V SINGLE AP, 04/29/2018. . FINDINGS: Consolidative changes persist right base with small pneumothorax remaining. Left lung clear. The hear t and pulmonary vascularity are normal. The portion of the bony skeleton visualized is unremarkable. CONCLUSION: Dense consolidative changes right base Right pneumothorax slightly smaller. Electronically signed by: Felice Hough MD 04/30/2018 9:18 AM EDT
[2018-04-30 09:52] VITALS: RESP 18
--- NOTE | 2018-04-30 10:41 | P.DCO ---
- Physical Therapy Order: Evaluate and treat - Home Health Nursing Order: Medical education, Signs/symptoms of disease process, Nursing assessment with vital signs - Certification I have seen patient Taryn Desai on 04/30/18. My clinical findings support the need for the requested home health care services because: Patient has SOB I certify that my clinical findings support that this patient is homebound because: Unsteady gait/balance
--- NOTE | 2018-04-30 11:27 | P.PNIM ---
Subjective Interval history: in no acute distress. off oxygen; walking in the hallway with no difficulty. says that she's feeling very good today and hoping she could go home soon. no fever. Physical Exam Vital signs: Vital Signs 04/29/18 12:00 04/29/18 16:00 04/29/18 20:00 Temperature 98.8 F 97.1 F L 97.4 F L Pulse Rate 111 H 96 H 100 H Respiratory Rate 17 17 18 Blood Pressure 114/58 L 117/57 L 122/59 L Pulse Oximetry 90 L 90 L 91 L Pulse Oximetry [Exertion on Room Air] Pulse Oximetry [Resting on Room Air] 04/30/18 00:00 04/30/18 04:00 04/30/18 07:56 Temperature 97.7 F 97.7 F Pulse Rate 89 89 99 H Respiratory Rate 17 17 Blood Pressure 119/62 126/55 L Pulse Oximetry 93 L 93 L Pulse Oximetry [Exertion on Room Air] Pulse Oximetry [Resting on Room Air] 04/30/18 08:00 04/30/18 08:19 04/30/18 08:21 Temperature 97.9 F Pulse Rate 89 Respiratory Rate 18 Blood Pressure 138/69 Pulse Oximetry 93 L 94 L Pulse Oximetry [Exertion on Room Air] 97 Pulse Oximetry [Resting on Room Air] 95 Intake & Output 04/29/18 04/30/18 04/30/18 18:59 06:59 18:59 Weight 45.7 kg Other: Date of Last Bowel Movement 04/29/18 04/29/18 04/29/18 - Constitutional no acute distress - Routine Respiratory Exam Present: CTA bilaterally - Routine Cardiovascular Exam Present: RRR - Routine Abdominal Exam Present: soft - Routine Extremities Exam Comments: no pedal edema. - Routine Neurological Exam Present: alert, oriented X3 Results - Labs CBC & Chem 7: 04/26/18 09:52 04/26/18 09:52 Microbiology 04/22/18 12:17 Bronchial Washings - Right Lower Lobe Acid Fast Bacilli Smear - Final No acid fast bacilli seen 04/22/18 12:17 Bronchial Washings - Right Lower Lobe Mycobacterial Culture - Preliminary No growth in 1 week - Imaging Impressions Tunnelled Chest Tube Removal 04/28/18 14:00 CONCLUSION: Uncomplicated chest tube removal. Chest X-Ray 04/30/18 09:00 CONCLUSION: Dense consolidative changes right base Right pneumothorax slightly smaller. Assessment and Plan - Plan Persistent right-sided hydropneumothorax with large empyema -s/p bronchoscopy and later on chest tube placement which was removed on 04/28. -fluid cultures negative so far. -repeated CT chest with persistent pneumothorax, LLL ground glass infiltrate. -Levaquin stopped per my d/w . -no further surgical intervention per CT surgery. -pulmonary following. Coccyx pressure ulcer, stage II -consulted wound care. Physical deconditioning -PT eval and treat -Added ensure to meals when no longer npo -Consulted dietary COPD, chronic, currently not in exacerbation -Resumed home inhaler, duo nebs as needed Chronic pain -Resumed home medications methadone and Percocet Anxiety, chronic -Resumed home medications Valium and Klonopin dysuria/ possible UTI -continue Levaquin-- added Pyridium Hypokalemia- replaced. DVT prophylaxis: SCDs Discharge Planning: possible dc home today if cleared by pulmonary. f/u; pcp and pulmonary. d/w the patient. Jesse was reviewed.
[2018-04-30 13:15] VITALS: BP 132/61; TEMP 98.1; O2SAT 93
--- NOTE | 2018-04-30 15:01 | P.DS ---
Date of admission: 04/19/18 17:12 Primary care physician: UNKNOWN Brief History from admission: 72 y/o female with a history copd, chronic pain, and anxiety was a transfer from [facility] for evaluation by a cardiothoracic surgeon for evaluation of persistent right-sided hydropneumothorax with large empyema and main need intervention. Patient was admitted on 04/07/18 and found to have pneumonia with a large empyema, thoracentesis was completed on 04/08 and fluid was then sent and cultures grew Streptococcus intermedius, patient was treated with IV antibiotics and is currently on p.o. Levaquin. Patient did have a pigtail catheter in place and continued to drain 100 mL's of fluid every day. Multiple chest x-rays have been completed since thoracentesis and patient continued to have residual right hydropneumothorax despite intervention. Dr. Glaser agreed to take patient on [place] with consult to thoracic surgeons. Upon examination patient denies any chest pain, shortness of breath, fever or chills. DS: Summary Hospital Course: patient was transferred from [facility] for CT surgery evaluation of her empyema. she had chest tube placement. she was seen by CT surgery who recommended no surgery at this time. she was seen by pulmonary. chest tube was removed and she remained clinically stable after chest tube removal. she was cleared by pulmonary for discharge with f/u with her PCP and Pulmonary. antibiotics were discontinued before discharge per pulmonary recommendations. case management consulted for [facility]. - Time Spent with Patient Total time spent providing and/or coordinating discharge services: Less than 30 minutes - Quality: VTE Deep Vein Thrombosis/Pulmonary Embolism Present on Admission: Yes Exam Vital signs: Vital Signs 04/29/18 16:00 04/29/18 20:00 04/30/18 00:00 Temperature 97.1 F L 97.4 F L 97.7 F Pulse Rate 96 H 100 H 89 Respiratory Rate 17 18 17 Blood Pressure 117/57 L 122/59 L 119/62 Pulse Oximetry 90 L 91 L 93 L Pulse Oximetry [Exertion on Room Air] Pulse Oximetry [Resting on Room Air] 04/30/18 04:00 04/30/18 07:56 04/30/18 08:00 Temperature 97.7 F 97.9 F Pulse Rate 89 99 H 89 Respiratory Rate 17 18 Blood Pressure 126/55 L 138/69 Pulse Oximetry 93 L 93 L Pulse Oximetry [Exertion on Room Air] Pulse Oximetry [Resting on Room Air] 04/30/18 08:19 04/30/18 08:21 04/30/18 12:00 Temperature 98.1 F Pulse Rate 103 H Respiratory Rate 18 Blood Pressure 132/61 Pulse Oximetry 94 L 93 L Pulse Oximetry [Exertion on Room Air] 97 Pulse Oximetry [Resting on Room Air] 95 Intake & Output 04/29/18 04/30/18 04/30/18 18:59 06:59 18:59 Weight 45.7 kg Other: Date of Last Bowel Movement 04/29/18 04/29/18 04/29/18 Results Procedures completed during hospitalization: chest tube placement. Completed studies during hospitalization: Pending at discharge 04/23/18 08:47 Cytology [PTH] Routine Labs on day of discharge: Preliminary micro results at discharge 04/22/18 12:17 Mycobacterial Culture - Preliminary Bronchial Washings - Right Lower Lobe No growth in 1 week 04/22/18 12:17 Fungal Culture - Preliminary Bronchial Washings - Right Lower Lobe - Impressions ITS Impressions Chest Tube Insertion 04/23/18 00:00 CONCLUSION: Uncomplicated CT-guided right chest pigtail thoracostomy tube placement as above. Chest CT 04/28/18 00:00 CONCLUSION: 1. The hydropneumothorax on the right is smaller and a right-sided thoracostomy tube is in good position. A pneumothorax does persist which shows circumferential pleural thickening but no residual fluid is noted. 2. Small 2 cm area of groundglass infiltrate within the left lung base is new. 3. Right basilar atelectasis versus scarring is improved somewhat. 4. Residual debris/fluid obscuring the bronchus intermedius, right lower lobe and right middle lobe segmental branches. This is stable from the prior study. Tunnelled Chest Tube Removal 04/28/18 14:00 CONCLUSION: Uncomplicated chest tube removal. Chest X-Ray 04/30/18 09:00 CONCLUSION: Dense consolidative changes right base Right pneumothorax slightly smaller. Discharge Plan - Discharge Disposition Patient Disposition: W/Home Health Service - Discharge Condition Condition: Fair - Discharge Order Discharge Orders: Discharge Order (Routine); Ordered 04/30/18 Ordered By: Cecily Montano - Physicians Team Primary Care Provider: UNKNOWN, Attending Provider: Cecily Montano Other Providers: Dyana Monson MD ; Felice Miranda MD - Rxs /Orders / Referrals /Forms Prescriptions: Continue albuterol sulfate [ProAir HFA] 90 mcg/actuation Hfa Aerosol Inhaler 2 puff Inhalation Q4-6H PRN (Reason: Shortness Of Breath) cholecalciferol (vitamin D3) 1,000 unit Capsule 1,000 unit PO DAILY clonazepam 0.5 mg Tablet 0.5 mg PO BID diazepam 5 mg Tablet 5 mg PO BID estradiol 0.5 mg Tablet 0.5 mg PO HS eye lubricant combination no.1 [FreshKote] 2-0.9-1.8 % Drops 1 drp OPHTHALMIC (EYE) TID famotidine [Pepcid] 20 mg Tablet 20 mg PO DAILY PRN (Reason: Indigestion) methadone 5 mg Tablet 5 mg PO Q6H methocarbamol [Robaxin] 500 mg Tablet 500 mg PO TID norethindrone acetate 5 mg Tablet 2.5 mg PO HS oxycodone-acetaminophen 5-325 mg Tablet 1 - 2 tab PO Q4-6H PRN (Reason: Abdominal Pain) pantoprazole [Protonix] 40 mg Tablet,Delayed Release (Dr/Ec) 40 mg PO BID PRN (Reason: Indigestion) Senna with Docusate Sodium 2 tab PO AC PRN (Reason: Constipation) Discontinued ibuprofen 400 mg Tablet 400 mg PO QID PRN (Reason: pain) levofloxacin [Levaquin] 750 mg Tablet 750 mg PO DAILY Referrals: UNKNOWN, [Primary Care Provider] - See Instructions
--- NOTE | 2018-04-30 15:04 | MD ---
cc: Jairo Miranda MD DATE OF DISCHARGE: 04/30/2018 HOSPITAL COURSE: This is a 72-year-old white female who actually presented here on transfer from [facility] in [place] with an empyema and a trapped right lung. She was accepted by Dr. Wick for the cardiovascular surgeons to see. I was asked to see her in consultation because of the empyema and the residual pneumothorax but in particular, because she appeared to have an obstructing lesion in the right mainstem bronchus. She was admitted. Cultures were obtained and a catheter was eventually placed in that right pleural space draining serosanguineous fluid, which was culture negative. I bronchoscoped her in light of the abnormality on CT and although there was extrinsic compression at the bronchus intermedius, there was no endobronchial obstruction seen. Cytology on that specimen from the right lower lobe was also negative. Thoracentesis cytology of the pleural fluid was also negative. All cultures of bronchial washings and pleural fluid were negative. The right lower lobe never really completely expanded and a followup CT scan revealed that there was a thick pleural peel, indicating that that lung is trapped. The cardiothoracic surgeons did see her, evaluated her and did not feel that she was a surgical candidate because of extreme cachexia and debility. She has improved clinically, though. Her appetite is better. She is up. She is ambulating. Her oxygen is stable on room air. A walk test was negative for desaturation and she is anxious for discharge. I spoke to Radiology and Cardiothoracic Surgery and suggested that we remove the tube, recognizing that lung would not expand completely and that it would probably fill in with fluid again but at least at this point, it is sterile. All agreed. For the last 48 hours, she has been very stable clinically, actually gaining strength and improving. No fever and the followup chest x-ray is stable, other than some gradually reaccumulating fluid in that right pleural space. DISCHARGE PLAN: She will go back to [place] where she is from. She prefers to have a follow up with me here as an outpatient if possible in 2 weeks, which will be fine. However, I did explain to her that because she could develop other complications that would require more urgent intervention that she should return to [facility] if problems arise before followup or in the future. She recognizes that and agrees. Having reviewed all of this with the patient and her male friend, hospitalist is arranging for discharge. She will call my office next week to arrange a followup appointment. I should also mention that the followup CT scan also again suggested some type of obstruction in that right main stem bronchus but having visualized that for myself, I do not see anything. This extrinsic compression, though, is of concern. I will do a followup CAT scan as an outpatient and if necessary, a PET scan in the event there is an occult malignancy lying in that space that we could not identify or see visually. R. MD RUTH ANN Avalos/franky , 02:38 PM , 02:46 PM
[2018-04-30 15:17] VITALS: PULSE 102
== END 2018-04-30 16:59 | disposition home health service (06) ==
LOC: N04 17:12
PROVIDERS: ADMIT Internal Medicine; ATTEND Internal Medicine